=== PATIENT | female | born 1955 | race Caucasian/White ===

== ENCOUNTER 2017-09-23 14:35 | Emergency (ER) | payer OTHER ==
[~2017-09-23] VITALS: Ht 180.3 cm; Wt 94.0 kg
[2017-09-23 14:37] VITALS: BP 154/94; PULSE 106; RESP 14; TEMP 98.4; O2SAT 100
--- NOTE | 2017-09-23 16:19 | PD ---
HPI Chief Complaint: Skin Problem Time Seen by Provider: 15:58 Travel History International Travel<30 days: No Contact w/Intl Traveler<30days: No Traveled to known affect area: No History of Present Illness HPI 62yo F with PMH of DM, COPD here with c/o darkening of her right big toe. Pt has been having back area on right big toe for 2 weeks and went to see her primary care physician 2 days ago. Pt said she was told to come to the ED if symptoms worsen. Pt said the darkness is spreading and the area below the nail seemed darker so decided to come in. Denies any fever, pain, chest pain, sob, n /v, abdominal pain, focal weakness or numbness. PFSH Social History Tobacco Use: No Allergies-Medications (Allergen,Severity, Reaction): Coded Allergies: No Known Allergies (Unverified , 09/23/17) Review of Systems Except as stated in HPI: all other systems reviewed are Neg Physical Exam Narrative GEN: 62yo F not in distress. Head: Normocephalic, atraumatic. CV: S1, S2. Lungs: CTA B/L, equal breath sounds. Abd: soft, NT/ND. No rebound tenderness or guarding. Ext: Right foot: +Black discoloration and callous medial aspect of right big toe. Cold to touch. DP 2+. Sensation intact. Pt has decreased sensation in right big toe that is chronic. Data Data Last Documented VS Vital Signs Date Time Temp Pulse Resp B/P (MAP) Pulse Ox O2 Delivery O2 Flow Rate FiO2 09/23/17 17:50 09/23/17 15:23 16 09/23/17 14:37 98.4 106 100 Room Air Orders Orders Foot, Limited (2vws) (09/23/17 ) Complete Blood Count With Diff (09/23/17 16:06) Basic Metabolic Panel (Bmp) (09/23/17 16:06) Ed Discharge Order (09/23/17 17:43) Labs Laboratory Tests Test 09/23/17 16:20 White Blood Count 11.2 TH/MM3 Red Blood Count 4.17 MIL/MM3 Hemoglobin 12.1 GM/DL Hematocrit 35.6 % Mean Corpuscular Volume 85.4 FL Mean Corpuscular Hemoglobin 29.1 PG Mean Corpuscular Hemoglobin Concent 34.1 % Red Cell Distribution Width 15.5 % Platelet Count 375 TH/MM3 Mean Platelet Volume 7.9 FL Neutrophils (%) (Auto) 52.3 % Lymphocytes (%) (Auto) 36.7 % Monocytes (%) (Auto) 6.3 % Eosinophils (%) (Auto) 3.9 % Basophils (%) (Auto) 0.8 % Neutrophils # (Auto) 5.8 TH/MM3 Lymphocytes # (Auto) 4.1 TH/MM3 Monocytes # (Auto) 0.7 TH/MM3 Eosinophils # (Auto) 0.4 TH/MM3 Basophils # (Auto) 0.1 TH/MM3 CBC Comment DIFF FINAL Differential Comment Blood Urea Nitrogen 9 MG/DL Creatinine 1.16 MG/DL Random Glucose 121 MG/DL Calcium Level 9.0 MG/DL Sodium Level 135 MEQ/L Potassium Level 3.6 MEQ/L Chloride Level 100 MEQ/L Carbon Dioxide Level 27.2 MEQ/L Anion Gap 8 MEQ/L Estimat Glomerular Filtration Rate 47 ML/MIN MDM Medical Decision Making Medical Screen Exam Complete: Yes Emergency Medical Condition: Yes Differential Diagnosis Dry gangrene vs. diabetic foot Narrative Course 62yo F with 2 weeks of dark discoloration in right big toe. Has podiatry appointment on Monday but decide to come because it looks darker. There is no discharge, no foul smell, no erythema, edema. Pt has no pain. It is cool to touch but pt has good DP pulses. Labs reviewed, WBC 11.2. BMP unremarkable. Xray right foot showed no acute fracture. Mild degenerative change of first metatarsal phalangeal joint. Briefly discussed with Dr. Devlin from podiatry and he recommends follow up with her electronic imager if no elevated WBC or signs of infection. Pt has electronic imager but will still give our electronic imager's information. Diagnosis Primary Impression: Dry gangrene Referrals: Daniel Devlin DPM as needed Patient Instructions: General Instructions Departure Forms: Tests/Procedures Additional Instructions: Please follow up with your electronic imager as well as primary care for possible referral to vascular surgeon. Return to the ED if symptoms worsen. Med/Other Pt SpecificInfo: No Change to Meds Disposition: 01 DISCHARGE HOME Condition: Stable Berenice Estrada Sep 23, 2017 16:19
--- NOTE | 2017-09-23 16:34 | RADRPT ---
EXAM DATE/TIME: 09/23/2017 16:13 [facility] COMPARISON: No previous studies available for comparison. INDICATIONS : Right foot pain, no injury. MEDICAL HISTORY : None. SURGICAL HISTORY : Bunionectomy, right foot ENCOUNTER: Initial ACUITY: 4 - 6 days PAIN SCORE: 6/10 LOCATION: Right foot, distal first digit FINDINGS: Two view examination of the right foot demonstrates no soft tissue swelling, dislocation, or fracture . The calcaneus is intact. Bony mineralization is normal. There is evidence of previous surgery to the distal second metatarsal. There is mild degenerative changes at the first metatarsal-phalangeal j oint. CONCLUSION: 1. No acute fracture or joint dislocation. 2. Mild degenerative changes of the first metatarsal phalangeal joint. Gagan Sharif MD on September 23, 2017 at 16:32 Board Certified Radiologist. This report was verified electronically.
[2017-09-23 16:50] LABS: AUTOMATED NEUTROPHIL # 5.8 TH/MM3 (1.8-7.7); BASOPHIL # 0.1 TH/MM3 (0-0.2); BASOPHIL % 0.8 % (0.0-2.0); EOSINOPHIL # 0.4 TH/MM3 (0-0.4); EOSINOPHIL % 3.9 % (0.0-4.0); HEMATOCRIT 35.6 % (35.0-46.0); HEMOGLOBIN 12.1 GM/DL (11.6-15.3); LYMPH % 36.7 % (9.0-44.0); LYMPHOCYTE # 4.1 TH/MM3 (1.0-4.8); MEAN CELL VOLUME 85.4 FL (80.0-100.0); MEAN CORPUSCULAR HEMOGLOBIN 29.1 PG (27.0-34.0); MEAN CORPUSCULAR HGB CONC 34.1 % (32.0-36.0); MEAN PLATELET VOLUME 7.9 FL (7.0-11.0); MONO % 6.3 % (0.0-8.0); MONOCYTE # 0.7 TH/MM3 (0-0.9); NEUT % 52.3 % (16.0-70.0); PLATELET COUNT 375 TH/MM3 (150-450); RED BLOOD COUNT 4.17 MIL/MM3 (4.00-5.30); RED CELL DISTRIBUTION WIDTH 15.5 % (11.6-17.2); WHITE BLOOD COUNT 11.2 TH/MM3 (4.0-11.0)
[2017-09-23 17:10] LABS: BICARBONATE 27.2 MEQ/L (21.0-32.0); CREATININE 1.16 MG/DL (0.50-1.00)
== END 2017-09-23 17:59 | disposition home or self-care (01) ==
LOC: NEPD 14:35
DX: E11.52 Type 2 diabetes mellitus with diabetic peripheral angiopathy with gangrene (principal); I96 Gangrene, not elsewhere classified; J44.9 Chronic obstructive pulmonary disease, unspecified
CPT/HCPCS: 73620; 80048; 85025; 99284

== ENCOUNTER 2018-01-13 17:42 | Observation (INO) | payer OTHER ==
[~2018-01-13] VITALS: Ht 175.3 cm; Wt 99.0 kg
[2018-01-13] VITALS (7 sets, daily range): BP systolic 165–210; BP diastolic 76–147; PULSE 112–120; RESP 20–30; TEMP 99; O2SAT 94–99
[2018-01-13] MEDS ORDERED: ALBU6.7H INH (17:58)
--- NOTE | 2018-01-13 18:13 | PD ---
HPI Chief Complaint: Respiratory Distress Time Seen by Provider: 17:52 Travel History International Travel<30 days: No Contact w/Intl Traveler<30days: No Traveled to known affect area: No History of Present Illness HPI The patient is a 62-year-old female who presents to the emergency department for shortness of breath. The patient states she developed chest pain and shortness of breath earlier today while watching TV. The chest pain is described as tightness, across the anterior aspect of the chest, and associated with shortness of breath. The patient also notes a productive cough producing yellow to green sputum. The patient does have a history of asthma and COPD with a history of tobacco use. The patient denies any previous history of pulmonary embolism, DVT, recent hospitalizations, recent travel, or recent surgery. The patient moved to the local area 6 months ago from [place]. The patient denies any previous intubations from her asthma or COPD. The patient does complain of mild nausea but denies any vomiting, diarrhea, or abdominal pain. She denies any significant edema of the lower extremities. PFSH Past Medical History Asthma: Yes COPD: Yes Diabetes: Yes Patient Takes Glucophage: Yes (Yesterday) Diminished Hearing: No GERD: Yes Hypertension: Yes Influenza Vaccination: Yes Past Surgical History Cholecystectomy: Yes Gynecologic Surgery: Yes (hysterectomy) Hysterectomy: Yes (TOTAL) Social History Alcohol Use: No Tobacco Use: No Substance Use: No Allergies-Medications (Allergen,Severity, Reaction): Coded Allergies: No Known Allergies (Unverified , 01/13/18) Reported Meds & Prescriptions Reported Meds & Active Scripts Active Reported Trazodone (Trazodone HCl) 50 Mg Tab 25 Mg PO HS Losartan (Losartan Potassium) 100 Mg Tab 100 Mg PO DAILY Vitamin B-12 (Cyanocobalamin) 1,000 Mcg Tab 1,000 Mcg PO DAILY Dicyclomine (Dicyclomine HCl) 20 Mg Tab 20 Mg PO TID Metformin (Metformin HCl) 1,000 Mg Tab 1,000 Mg PO BIDPC Montelukast (Montelukast Sodium) 10 Mg Tab 10 Mg PO HS Pantoprazole (Pantoprazole Sodium) 40 Mg Tab 40 Mg PO DAILY Ranitidine (Ranitidine HCl) 300 Mg Cap 300 Mg PO DAILY Amlodipine (Amlodipine Besylate) 10 Mg Tab 10 Mg PO DAILY Benzonatate 100 Mg Cap 100 Mg PO TID PRN Pravastatin 20 Mg Tab 20 Mg PO DAILY Aspirin 81 Mg Chew 81 Mg CHEW DAILY Duloxetine DR (Duloxetine HCl) 30 Mg Capdr 30 Mg PO DAILY Spiriva Respimat Inh (Tiotropium Inh) 2.5 Mcg/Act Aero 2 Puff INH DAILY 2.5 mcg = 1 inhalation Dulera 120 Act Inh (Mometasone-Formoterol 120 Act Inh) 200-5 Mcg/Act Inh 2 Puff INH BID Flexeril (Cyclobenzaprine HCl) 10 Mg Tab 10 Mg PO TID Review of Systems Except as stated in HPI: all other systems reviewed are Neg General / Constitutional: No: Fever HENT: No: Lightheadedness Cardiovascular: Positive: Chest Pain or Discomfort Respiratory: Positive: Cough, Shortness of Breath, Wheezing Gastrointestinal: No: Nausea, Vomiting, Abdominal Pain Musculoskeletal: No: Edema Neurologic: No: Dizziness Psychiatric: Positive: Anxiety Physical Exam Narrative GENERAL: Awake, alert, pleasant 62-year-old female who appears her stated age and is in mild respiratory distress SKIN: Focused skin assessment warm/dry. HEAD: Atraumatic. Normocephalic. EYES: Pupils equal and round. No scleral icterus. No injection or drainage. ENT: No nasal bleeding or discharge. Mucous membranes pink and moist. NECK: Trachea midline. No JVD. CARDIOVASCULAR: Regular, tachycardic with a heart rate in the 120s. RESPIRATORY: No accessory muscle use. Clear to auscultation. Breath sounds equal bilaterally. No significant wheezing noted. GASTROINTESTINAL: Abdomen soft, non-tender, nondistended. No rebound tenderness. No guarding or rigidity. MUSCULOSKELETAL: No obvious deformities. No clubbing. No cyanosis. No edema. NEUROLOGICAL: Awake and alert. No obvious cranial nerve deficits. Motor grossly within normal limits. Normal speech. PSYCHIATRIC: Appropriate mood and affect; insight and judgment normal. Data Data Last Documented VS Vital Signs Date Time Temp Pulse Resp B/P (MAP) Pulse Ox O2 Delivery O2 Flow Rate FiO2 01/14/18 00:00 118 21 148/69 (95) 95 Room Air 01/13/18 17:44 99.0 Orders Orders Complete Blood Count With Diff (01/13/18 18:07) Comprehensive Metabolic Panel (01/13/18 18:07) B-Type Natriuretic Peptide (01/13/18 18:07) Act Partial Throm Time (Ptt) (01/13/18 18:07) Prothrombin Time / Inr (Pt) (01/13/18 18:07) Magnesium (Mg) (01/13/18 18:07) Ckmb (Isoenzyme) Profile (01/13/18 18:07) Troponin I (01/13/18 18:07) Iv Access Insert/Monitor (01/13/18 18:07) Ecg Monitoring (01/13/18 18:07) Oximetry (01/13/18 18:07) Oxygen Administration (01/13/18 18:07) Chest, Single Ap (01/13/18 18:07) Sodium Chloride 0.9% Flush (Ns Flush) (01/13/18 18:15) Methylprednisolone So Succ Inj (Solumedr (01/13/18 18:15) Albuterol-Ipratropium Neb (Duoneb Neb) (01/13/18 18:15) Lorazepam Inj (Ativan Inj) (01/13/18 18:15) Ct Pulmonary Angiogram (01/13/18 ) Iohexol 350 Inj (Omnipaque 350 Inj) (01/13/18 19:40) Sodium Chlorid 0.9% 500 Ml Inj (Ns 500 M (01/13/18 21:15) Losartan (Cozaar) (01/13/18 21:15) Amlodipine (Norvasc) (01/13/18 21:15) Electrocardiogram (01/13/18 16:56) Trazodone (Desyrel) (01/13/18 23:00) Acetaminophen (Tylenol) (01/13/18 23:00) Cyclobenzaprine (Flexeril) (01/13/18 23:00) Metoprolol Tartrate Inj (Lopressor Inj) (01/14/18 00:09) Activity Bed Rest With Brp (01/14/18 00:10) Vital Signs (Adult) Q4H (01/14/18 00:10) Cardiac Rhythm .As Directed (01/14/18 00:10) Notify Dr: Other .PRN (01/14/18 00:10) Notify Dr. Parameters (01/14/18 00:10) Resp Oxygen Nasal Cannula (01/14/18 ) Ckmb (Isoenzyme) Profile (01/14/18 00:10) Ckmb (Isoenzyme) Profile (01/14/18 03:10) Troponin I (01/14/18 00:10) Troponin I (01/14/18 03:10) Electrocardiogram (01/14/18 00:10) Electrocardiogram (01/14/18 03:10) ^ Obtain (01/14/18 00:10) Sodium Chloride 0.9% Flush (Ns Flush) (01/14/18 00:15) Sodium Chloride 0.9% Flush (Ns Flush) (01/14/18 09:00) Repeater Operator / Telemetry STELLA.Q8H (01/14/18 00:10) Admit Order (Ed Use Only) (01/14/18 ) Labs Laboratory Tests Test 01/13/18 18:15 White Blood Count 11.0 TH/MM3 Red Blood Count 4.00 MIL/MM3 Hemoglobin 12.5 GM/DL Hematocrit 36.8 % Mean Corpuscular Volume 91.9 FL Mean Corpuscular Hemoglobin 31.2 PG Mean Corpuscular Hemoglobin Concent 33.9 % Red Cell Distribution Width 15.3 % Platelet Count 453 TH/MM3 Mean Platelet Volume 7.3 FL Neutrophils (%) (Auto) 44.6 % Lymphocytes (%) (Auto) 41.1 % Monocytes (%) (Auto) 7.7 % Eosinophils (%) (Auto) 5.2 % Basophils (%) (Auto) 1.4 % Neutrophils # (Auto) 4.9 TH/MM3 Lymphocytes # (Auto) 4.5 TH/MM3 Monocytes # (Auto) 0.8 TH/MM3 Eosinophils # (Auto) 0.6 TH/MM3 Basophils # (Auto) 0.2 TH/MM3 CBC Comment DIFF FINAL Differential Comment Prothrombin Time 10.7 SEC Prothromb Time International Ratio 1.1 RATIO Activated Partial Thromboplast Time 26.7 SEC Blood Urea Nitrogen 11 MG/DL Creatinine 1.03 MG/DL Random Glucose 144 MG/DL Total Protein 8.7 GM/DL Albumin 4.1 GM/DL Calcium Level 8.8 MG/DL Magnesium Level 1.7 MG/DL Alkaline Phosphatase 96 U/L Aspartate Amino Transf (AST/SGOT) 41 U/L Alanine Aminotransferase (ALT/SGPT) 30 U/L Total Bilirubin 0.5 MG/DL Sodium Level 132 MEQ/L Potassium Level 3.4 MEQ/L Chloride Level 96 MEQ/L Carbon Dioxide Level 25.4 MEQ/L Anion Gap 11 MEQ/L Estimat Glomerular Filtration Rate 54 ML/MIN Total Creatine Kinase 73 U/L Troponin I LESS THAN 0.02 NG/ML B-Type Natriuretic Peptide 3 PG/ML MDM Medical Decision Making Medical Screen Exam Complete: Yes Emergency Medical Condition: Yes Medical Record Reviewed: Yes Interpretation(s) EKG reveals sinus tachycardia with a heart rate of 127. No ischemic changes noted. Differential Diagnosis Differential diagnosis includes COPD exacerbation, asthma exacerbation, pulmonary embolism, acute coronary syndrome, pleural effusion, pulmonary edema, congestive heart failure, cardiomyopathy. Narrative Course IV was established, labs are drawn and sent, and the patient was placed on cardiac telemetry monitoring and continuous pulse oximetry monitoring. EKG was ordered and interpreted. Chest x-ray was obtained. CT pulmonary angiogram was ordered as patient is tachycardic with shortness of breath, chest tightness, and minimal to no wheezing. The patient was signed out to the oncoming physician at 7 PM with laboratory evaluation and CT pulmonary angiogram pending. The patient does have abnormal vitals with increased work of breathing , will be admitted. Condition: Stable Haider Baig MD Jan 13, 2018 18:13
[2018-01-13] MEDS ORDERED: LORazepam 2 MG/ML VIAL IV PUSH ONE (18:15)
[2018-01-13] MEDS ORDERED: SODIUM CHLORIDE 0.9% FLUSH 10 ML FLUSH IVF PRN (18:15)
[2018-01-13] MEDS ORDERED: methylPREDNISolone SOD SUCC 125 MG/2 ML VIAL IV PUSH ONE (18:15)
[2018-01-13] MEDS ORDERED: RESP: ALBUTEROL 2.5 MG/IPRATROPIUM 0.5 MG NEB (SCH) INH (18:15)
[2018-01-13 18:29] LABS: AUTOMATED NEUTROPHIL # 4.9 TH/MM3 (1.8-7.7); BASOPHIL # 0.2 TH/MM3 (0-0.2); BASOPHIL % 1.4 % (0.0-2.0); EOSINOPHIL # 0.6 TH/MM3 (0-0.4); EOSINOPHIL % 5.2 % (0.0-4.0); HEMATOCRIT 36.8 % (35.0-46.0); HEMOGLOBIN 12.5 GM/DL (11.6-15.3); LYMPH % 41.1 % (9.0-44.0); LYMPHOCYTE # 4.5 TH/MM3 (1.0-4.8); MEAN CELL VOLUME 91.9 FL (80.0-100.0); MEAN CORPUSCULAR HEMOGLOBIN 31.2 PG (27.0-34.0); MEAN CORPUSCULAR HGB CONC 33.9 % (32.0-36.0); MEAN PLATELET VOLUME 7.3 FL (7.0-11.0); MONO % 7.7 % (0.0-8.0); MONOCYTE # 0.8 TH/MM3 (0-0.9); NEUT % 44.6 % (16.0-70.0); PLATELET COUNT 453 TH/MM3 (150-450); RED CELL DISTRIBUTION WIDTH 15.3 % (11.6-17.2)
[2018-01-13 18:40] LABS: INTERNATIONAL NORMALIZED RATIO 1.1 RATIO; PROTHROMBIN TIME - PATIENT 10.7 SEC (9.8-11.6)
[2018-01-13 18:46] LABS: ALBUMIN 4.1 GM/DL (3.4-5.0); AST (GOT) 41 U/L (15-37); BICARBONATE 25.4 MEQ/L (21.0-32.0); BLOOD UREA NITROGEN 11 MG/DL (7-18); CALCIUM 8.8 MG/DL (8.5-10.1); CHLORIDE 96 MEQ/L (98-107); CREATININE 1.03 MG/DL (0.50-1.00); GLOMERULAR FILTRATION RATE 54 ML/MIN (>89); GLUCOSE,RANDOM 144 MG/DL (74-106); MAGNESIUM 1.7 MG/DL (1.5-2.5); SODIUM (NA) 132 MEQ/L (136-145)
[2018-01-13 18:47] LABS: ALT (GPT) 30 U/L (10-53)
[2018-01-13 18:50] LABS: ALKALINE PHOSPHATASE 96 U/L (45-117); TOTAL BILIRUBIN ADULT 0.5 MG/DL (0.2-1.0); TOTAL PROTEIN 8.7 GM/DL (6.4-8.2); TROPONIN I LESS THAN 0.02 NG/ML (0.02-0.05)
[2018-01-13] MEDS ORDERED: PANT40TA3 PO (18:57)
[2018-01-13] MEDS ORDERED: AMLO10TA2 PO (18:57)
[2018-01-13] MEDS ORDERED: PRAV20TA2 PO (18:57)
[2018-01-13] MEDS ORDERED: RANI300C PO (18:57)
[2018-01-13] MEDS ORDERED: METF1000 PO (18:57)
[2018-01-13] MEDS ORDERED: DULE200A INH (18:57)
[2018-01-13] MEDS ORDERED: DULO1CAP2 PO (18:57)
[2018-01-13] MEDS ORDERED: BENZ1CAP54 PO (18:57)
[2018-01-13] MEDS ORDERED: TIOT12.9 INH (18:57)
[2018-01-13] MEDS ORDERED: TRAZ50TA12 PO (18:57)
[2018-01-13] MEDS ORDERED: DICY20TA10 PO (18:57)
[2018-01-13] MEDS ORDERED: MONT10TA4 PO (18:57)
[2018-01-13] MEDS ORDERED: LOSA100T PO (18:57)
[2018-01-13] MEDS ORDERED: VITA10002 PO (18:57)
[2018-01-13] MEDS ORDERED: CYCL10TA PO (18:57)
[2018-01-13] MEDS ORDERED: ASPI-516 CHEW (18:57)
--- NOTE | 2018-01-13 19:09 | RADRPT ---
EXAM DATE: 01/13/2018 6:39 PM EDT AGE/SEX: 62 years / Female INDICATIONS: Short of breath. CLINICAL DATA: This is the patient's initial encounter. Patient reports that signs and symptoms have been present for 1 day and indicates a pain score of 0/10. MEDICAL/SURGICAL HISTORY: None. None. COMPARISON: No prior exams available for comparison. FINDINGS: A single AP view of the chest demonstrates the lungs to be symmetrically aerated without evidence of mass, infiltrate or effusion. Mild basilar atelectasis. The cardiomediastinal contours are unremarkab le. Osseous structures are intact. CONCLUSION: Mild basilar atelectasis. Electronically signed by: Antonio Matta MD 01/13/2018 7:08 PM EDT
[2018-01-13] MEDS ORDERED: IOHEXOL 350 MG/ML 10 ML VIAL (for RAD DIAG) IVCONTRAST ONE (19:40)
--- NOTE | 2018-01-13 20:26 | RADRPT ---
EXAM DATE: 01/13/2018 7:58 PM EDT AGE/SEX: 62 years / Female INDICATIONS: Shortness of breath today. CLINICAL DATA: This is the patient's initial encounter. Patient reports that signs and symptoms have been present for 1 day and indicates a pain score of 0/10. MEDICAL/SURGICAL HISTORY: Diabetes. Hypertension. Gastroesophageal reflux disease. Hysterectomy. Cholecystectomy. RADIATION DOSE: 10.47 CTDI (mGy) COMPARISON: No prior exams available for comparison. TECHNIQUE: Volumetric scanning was performed using a multi-row detector CT scanner during bolus infu owen of 70 ml Omnipaque 350 (iohexol) nonionic water-soluble contrast as a single exam dose. The candice a was post processed with a variety of visualization algorithms including full volume maximum intensi ty projection and sliding thin slab reformation. Using automated exposure control and adjustment of the mA and/or kV according to patient size, radiation dose was kept as low as reasonably achievable t o obtain optimal diagnostic quality images. FINDINGS: No filling defects in the pulmonary arteries to suggest pulmonary embolic disease. Dependent atelecta sis in the lungs. No pleural or pericardial effusion. Moderate coronary calcifications. CONCLUSION: 1. Negative for pulmonary embolus. Moderate coronary calcifications. No lung consolidation or effusi on. Electronically signed by: Antonio Matta MD 01/13/2018 8:25 PM EDT
[2018-01-13] MEDS ORDERED: LOSARTAN 50 MG TAB PO ONE (21:15)
[2018-01-13] MEDS ORDERED: SODIUM CHLORID 0.9% 500 ML INJ 500 ML IV ONE (21:15)
[2018-01-13] MEDS ORDERED: CYCLOBENZAPRINE HCL 10 MG TAB PO ONE (23:00)
[2018-01-13] MEDS ORDERED: ACETAMINOPHEN 325 MG TAB PO ONE (23:00)
[2018-01-13] MEDS ORDERED: traZODone HCL 50 MG TAB PO ONE (23:00)
[2018-01-14] VITALS (8 sets, daily range): BP systolic 141–156; BP diastolic 69–90; PULSE 103–121; RESP 16–21; TEMP 97.6–98.9; O2SAT 93–99
[2018-01-14] MEDS ORDERED: METOPROLOL TARTRATE 5 MG/5 ML VIAL IV PUSH STA (00:09)
[2018-01-14] MEDS ORDERED: SODIUM CHLORIDE 0.9% FLUSH 10 ML FLUSH IV FLUSH PRN (00:15)
[2018-01-14 01:56] LABS: TROPONIN I 0.02 NG/ML (0.02-0.05)
--- NOTE | 2018-01-14 02:59 | PD ---
Physical Exam Narrative Patient signed out to me by Dr. Baig. Please see his documentation for complete details. Briefly, patient is a 62-year-old female who comes in complaining of chest pain and shortness of breath. On arrival she was tachycardic, lungs were clear. She was given 2 DuoNeb's and a dose of Solu-Medrol with improvement of her breathing. However, she continues to be tachycardic and had occasional chest pains. Data Data Last Documented VS Vital Signs Date Time Temp Pulse Resp B/P (MAP) Pulse Ox O2 Delivery O2 Flow Rate FiO2 01/14/18 00:00 118 21 148/69 (95) 95 Room Air 01/13/18 17:44 99.0 Orders Orders Complete Blood Count With Diff (01/13/18 18:07) Comprehensive Metabolic Panel (01/13/18 18:07) B-Type Natriuretic Peptide (01/13/18 18:07) Act Partial Throm Time (Ptt) (01/13/18 18:07) Prothrombin Time / Inr (Pt) (01/13/18 18:07) Magnesium (Mg) (01/13/18 18:07) Ckmb (Isoenzyme) Profile (01/13/18 18:07) Troponin I (01/13/18 18:07) Iv Access Insert/Monitor (01/13/18 18:07) Ecg Monitoring (01/13/18 18:07) Oximetry (01/13/18 18:07) Oxygen Administration (01/13/18 18:07) Chest, Single Ap (01/13/18 18:07) Sodium Chloride 0.9% Flush (Ns Flush) (01/13/18 18:15) Methylprednisolone So Succ Inj (Solumedr (01/13/18 18:15) Albuterol-Ipratropium Neb (Duoneb Neb) (01/13/18 18:15) Lorazepam Inj (Ativan Inj) (01/13/18 18:15) Ct Pulmonary Angiogram (01/13/18 ) Iohexol 350 Inj (Omnipaque 350 Inj) (01/13/18 19:40) Sodium Chlorid 0.9% 500 Ml Inj (Ns 500 M (01/13/18 21:15) Losartan (Cozaar) (01/13/18 21:15) Amlodipine (Norvasc) (01/13/18 21:15) Electrocardiogram (01/13/18 16:56) Trazodone (Desyrel) (01/13/18 23:00) Acetaminophen (Tylenol) (01/13/18 23:00) Cyclobenzaprine (Flexeril) (01/13/18 23:00) Metoprolol Tartrate Inj (Lopressor Inj) (01/14/18 00:09) Activity Bed Rest With Brp (01/14/18 00:10) Vital Signs (Adult) Q4H (01/14/18 00:10) Cardiac Rhythm .As Directed (01/14/18 00:10) Notify Dr: Other .PRN (01/14/18 00:10) Notify DrJoleen Parameters (01/14/18 00:10) Resp Oxygen Nasal Cannula (01/14/18 ) Ckmb (Isoenzyme) Profile (01/14/18 00:10) Ckmb (Isoenzyme) Profile (01/14/18 03:10) Troponin I (01/14/18 00:10) Troponin I (01/14/18 03:10) Electrocardiogram (01/14/18 00:10) Electrocardiogram (01/14/18 03:10) ^ Obtain (01/14/18 00:10) Sodium Chloride 0.9% Flush (Ns Flush) (01/14/18 00:15) Sodium Chloride 0.9% Flush (Ns Flush) (01/14/18 09:00) Heavy Duty Diesel Mechanic / Telemetry STELLA.Q8H (01/14/18 00:10) Admit Order (Ed Use Only) (01/14/18 ) Labs Laboratory Tests Test 01/13/18 18:15 White Blood Count 11.0 TH/MM3 Red Blood Count 4.00 MIL/MM3 Hemoglobin 12.5 GM/DL Hematocrit 36.8 % Mean Corpuscular Volume 91.9 FL Mean Corpuscular Hemoglobin 31.2 PG Mean Corpuscular Hemoglobin Concent 33.9 % Red Cell Distribution Width 15.3 % Platelet Count 453 TH/MM3 Mean Platelet Volume 7.3 FL Neutrophils (%) (Auto) 44.6 % Lymphocytes (%) (Auto) 41.1 % Monocytes (%) (Auto) 7.7 % Eosinophils (%) (Auto) 5.2 % Basophils (%) (Auto) 1.4 % Neutrophils # (Auto) 4.9 TH/MM3 Lymphocytes # (Auto) 4.5 TH/MM3 Monocytes # (Auto) 0.8 TH/MM3 Eosinophils # (Auto) 0.6 TH/MM3 Basophils # (Auto) 0.2 TH/MM3 CBC Comment DIFF FINAL Differential Comment Prothrombin Time 10.7 SEC Prothromb Time International Ratio 1.1 RATIO Activated Partial Thromboplast Time 26.7 SEC Blood Urea Nitrogen 11 MG/DL Creatinine 1.03 MG/DL Random Glucose 144 MG/DL Total Protein 8.7 GM/DL Albumin 4.1 GM/DL Calcium Level 8.8 MG/DL Magnesium Level 1.7 MG/DL Alkaline Phosphatase 96 U/L Aspartate Amino Transf (AST/SGOT) 41 U/L Alanine Aminotransferase (ALT/SGPT) 30 U/L Total Bilirubin 0.5 MG/DL Sodium Level 132 MEQ/L Potassium Level 3.4 MEQ/L Chloride Level 96 MEQ/L Carbon Dioxide Level 25.4 MEQ/L Anion Gap 11 MEQ/L Estimat Glomerular Filtration Rate 54 ML/MIN Total Creatine Kinase 73 U/L Troponin I LESS THAN 0.02 NG/ML B-Type Natriuretic Peptide 3 PG/ML MDM Supervised Visit with DAVION: No Narrative Course Labs showed no acute abnormalities. CT of the chest was negative for PE. Patient was given her home medications, which improved her high blood pressure. However she remained tachycardic, so she was given a small dose of metoprolol which improved her heart rate. Should be placed in the chest pain center for further management of her chest pain. Diagnosis Primary Impression: Chest pain Qualified Codes: R07.9 - Chest pain, unspecified Additional Impression: Tachycardia Admitting Information Admitting Physician Requests: Observation Condition: Stable Sophy Fleming MD Jan 14, 2018 02:59
[2018-01-14 04:02] LABS: TROPONIN I LESS THAN 0.02 NG/ML (0.02-0.05)
[2018-01-14] MEDS ORDERED: ACETAMINOPHEN 500 MG CPLT PO PRN (07:30)
[2018-01-14] MEDS ORDERED: RESP: ALBUTEROL 2.5 MG/3 ML NEB (PRN) NEB (07:30)
[2018-01-14] MEDS ORDERED: NITROGLYCERIN 0.4 MG SL 25 TABS/BTL SL PRN (07:30)
--- NOTE | 2018-01-14 08:32 | HHI.HP ---
HPI Primary Care Physician [facility] Chief Complaint Chest tightness History of Present Illness 62-year-old female with history of type 2 diabetes, hypertension, hyperlipidemia , COPD, and former smoker presents emergency room for further evaluation of chest tightness. Onset yesterday afternoon. Location substernal. Characterized as tightness, "not like my asthma or COPD." No wheezing or recent upper respiratory infection. No radiation. Moderate in severity. Duration at least 6 hours. Associated symptoms included dyspnea, hurt to deep breath, nausea, and diaphoresis. No vomiting. No known precipitating factors. Relieving factors included respiratory treatment provided in ER, resolving symptoms quickly. Denies similar pain in the past. No increase use of PRN nebulizers treatments required recently. Increase seasonal allergy symptoms. Review of Systems General: No fatigue, weakness, fever, chills, recent illness, or change in appetite. Has been in her general state of health. HEENT: No RILEY, no vision changes, no nasal congestion or drainage, no dysphasia CV: As stated above. No current chest discomfort or pressure. RESP: No SOB, cough, or wheeze. Stable, unchanged COPD, without increase in symptoms. GI: Chronic diarrhea, follows with her PCP and GI closely. No nausea, vomiting, pain, distention, melena, or blood in the stool. : No dysuria, urgency, frequency EXT: No lower leg edema, no paraesthesias MS: No discomfort or change in ROM NEURO: No dizziness, difficulty with balance, LOC, motor/sensory deficits PSYCH: No anxiety, depression, or suicidal ideation SKIN: No rashes, no concerning lesions Past Family Social History Allergies: Coded Allergies: No Known Allergies (Unverified , 01/13/18) Past Medical History Type 2 diabetes mellitus, hypertension, hyperlipidemia, COPD, asthma, former smoker, chronic back pain Past Surgical History Hysterectomy, cholecystectomy, bladder suspension Reported Medications Reported Meds & Active Scripts Active Reported Trazodone (Trazodone HCl) 50 Mg Tab 25 Mg PO HS Losartan (Losartan Potassium) 100 Mg Tab 100 Mg PO DAILY Vitamin B-12 (Cyanocobalamin) 1,000 Mcg Tab 1,000 Mcg PO DAILY Dicyclomine (Dicyclomine HCl) 20 Mg Tab 20 Mg PO TID Metformin (Metformin HCl) 1,000 Mg Tab 1,000 Mg PO BIDPC Montelukast (Montelukast Sodium) 10 Mg Tab 10 Mg PO HS Pantoprazole (Pantoprazole Sodium) 40 Mg Tab 40 Mg PO DAILY Ranitidine (Ranitidine HCl) 300 Mg Cap 300 Mg PO DAILY Amlodipine (Amlodipine Besylate) 10 Mg Tab 10 Mg PO DAILY Benzonatate 100 Mg Cap 100 Mg PO TID PRN Pravastatin 20 Mg Tab 20 Mg PO DAILY Aspirin 81 Mg Chew 81 Mg CHEW DAILY Duloxetine DR (Duloxetine HCl) 30 Mg Capdr 30 Mg PO DAILY Spiriva Respimat Inh (Tiotropium Inh) 2.5 Mcg/Act Aero 2 Puff INH DAILY 2.5 mcg = 1 inhalation Dulera 120 Act Inh (Mometasone-Formoterol 120 Act Inh) 200-5 Mcg/Act Inh 2 Puff INH BID Flexeril (Cyclobenzaprine HCl) 10 Mg Tab 10 Mg PO TID Active Ordered Medications Current Medications Medications (Trade) Dose Ordered Sig/Ese Route Start Time Stop Time Status Last Admin (NS Flush) 2 ml UNSCH PRN IVF 01/13/18 18:15 (NS Flush) 2 ml UNSCH PRN IV FLUSH 01/14/18 00:15 (NS Flush) 2 ml BID IV FLUSH 01/14/18 09:00 01/14/18 07:59 (Tylenol) 500 mg Q4H PRN PO 01/14/18 07:30 (Nitrostat Sl) 0.4 mg Q5M PRN SL 01/14/18 07:30 (Aspirin) 325 mg DAILY PO 01/14/18 09:00 01/14/18 07:59 (Albuterol Neb) 2.5 mg Q2HR NEB PRN NEB 01/14/18 07:30 Family History Sister [id number] in early 50s. Social History No known coronary artery disease. Known Type 2 diabetes, hypertension, and hyperlipidemia. Former smoker [id number] history. Denies any alcohol or illegal drug use. Endorses a sedentary lifestyle. Served [employer] 4 years. Past cardiac testing None Physical Exam Vital Signs Vital Signs Date Time Temp Pulse Resp B/P (MAP) Pulse Ox O2 Delivery O2 Flow Rate FiO2 01/14/18 07:32 95 21 01/14/18 06:13 21 01/14/18 04:44 98.7 111 18 141/81 (101) 93 6/17/18 03:13 105 01/14/18 02:54 01/14/18 02:36 98.9 105 16 147/80 (102) 95 01/14/18 00:49 121 20 156/74 (101) 95 Room Air 01/14/18 00:00 118 21 148/69 (95) 95 Room Air 01/13/18 23:00 118 20 166/76 (106) 95 Room Air 01/13/18 22:00 114 22 165/92 (116) 94 Room Air 01/13/18 21:00 118 28 210/147 (168) 96 Room Air 01/13/18 20:00 112 30 190/84 (119) 95 Room Air 01/13/18 18:15 99 Room Air 01/13/18 18:15 100 Room Air 01/13/18 17:59 100 Room Air 01/13/18 17:59 120 28 207/93 (131) 99 Room Air 01/13/18 17:44 99.0 119 30 192/106 (134) 97 Physical Exam GENERAL: Alert WN, WD, NAD, pleasant, moderately obese, -Macedonian female HEAD: NC, AT EYES: Sclera clear, conjunctiva without injection, pupils equal and round ENT: Mucous membranes pink and moist, no nasal discharge or bleeding, poor dentition CV: RRR, without murmur, rub, gallop, no JVD, S1-S2 no S3-S4. Chest wall pain reproduced with palpation. RESP: Clear lungs throughout bilateral, no crackles, wheeze, rhonchi, symmetrical chest rise, nonlabored, able to speak in full sentences ABD: Soft, NT, ND, no masses, positive bowel tones, obese, round EXT: Pulses +2x4, no dependent edema MS: Normal tone x4 extremities, no obvious deformities, full range of motion NEURO: CN II through CN XII grossly intact, motor strength 5/5 PSYCH: A+O x3, pleasant affect, appropriate speech, mood, insight and judgment SKIN: Normal turgor, normal texture, no lesions, no rashes, brisk cap refill Laboratory Laboratory Tests Test 01/13/18 18:15 01/14/18 01:15 01/14/18 03:10 White Blood Count 11.0 Red Blood Count 4.00 Hemoglobin 12.5 Hematocrit 36.8 Mean Corpuscular Volume 91.9 Mean Corpuscular Hemoglobin 31.2 Mean Corpuscular Hemoglobin Concent 33.9 Red Cell Distribution Width 15.3 Platelet Count 453 Mean Platelet Volume 7.3 Neutrophils (%) (Auto) 44.6 Lymphocytes (%) (Auto) 41.1 Monocytes (%) (Auto) 7.7 Eosinophils (%) (Auto) 5.2 Basophils (%) (Auto) 1.4 Neutrophils # (Auto) 4.9 Lymphocytes # (Auto) 4.5 Monocytes # (Auto) 0.8 Eosinophils # (Auto) 0.6 Basophils # (Auto) 0.2 CBC Comment DIFF FINAL Differential Comment Prothrombin Time 10.7 Prothromb Time International Ratio 1.1 Activated Partial Thromboplast Time 26.7 Blood Urea Nitrogen 11 Creatinine 1.03 Random Glucose 144 Total Protein 8.7 Albumin 4.1 Calcium Level 8.8 Magnesium Level 1.7 Alkaline Phosphatase 96 Aspartate Amino Transf (AST/SGOT) 41 Alanine Aminotransferase (ALT/SGPT) 30 Total Bilirubin 0.5 Sodium Level 132 Potassium Level 3.4 Chloride Level 96 Carbon Dioxide Level 25.4 Anion Gap 11 Estimat Glomerular Filtration Rate 54 Total Creatine Kinase 73 60 70 Troponin I LESS THAN 0.02 0.02 LESS THAN 0.02 B-Type Natriuretic Peptide 3 Result Diagram: 01/13/18 1815 01/13/18 1815 Imaging Last 48 hours Impressions Chest X-Ray 01/13/18 1807 Signed Impressions: CONCLUSION: Mild basilar atelectasis. CT Angiography 01/13/18 0000 Signed Impressions: CONCLUSION: 1. Negative for pulmonary embolus. Moderate coronary calcifications. No lung c onsolidation or effusion. Course EKG NST, no st t segment changes Caprini VTE Risk Assessment Caprini VTE Risk Assessment: Mod/High Risk (score >= 2) Caprini Risk Assessment Model Point Value = 1 Point Value = 2 Point Value = 3 Point Value = 5 Age 41-60 Minor surgery BMI > 25 kg/m2 Swollen legs Varicose veins or History of unexplained or recurrent spontaneous Oral contraceptives or hormone replacement Sepsis (< 1 month) Serious lung disease, including pneumonia (< 1 month) Abnormal pulmonary function Acute myocardial infarction Congestive heart failure (< 1 month) History of inflammatory bowel disease Medical patient at bed rest Age 61-74 Arthroscopic surgery Major open surgery (> 45 min) Laparoscopic surgery (> 45 min) Malignancy Confined to bed (> 72 hours) Immobilizing plaster cast Central venous access Age >= 75 History of VTE Family history of VTE Factor V Leiden Prothrombin [id number] Lupus anticoagulant Anticardiolipin antibodies Elevated serum homocysteine Heparin-induced thrombocytopenia Other congenital or acquired thrombophilia Stroke (< 1 month) Elective arthroplasty Hip, pelvis, or leg fracture Acute spinal cord injury (< 1 month) Prophylaxis Regimen Total Risk Factor Score Risk Level Prophylaxis Regimen 0-1 Low Early ambulation 2 Moderate Order ONE of the following: *Sequential Compression Device (SCD) *Heparin 5000 units SQ BID 3-4 Higher Order ONE of the following medications: *Heparin 5000 units SQ TID *Enoxaparin/Lovenox 40 mg SQ daily (WT < 150 kg, CrCl > 30 mL/min) *Enoxaparin/Lovenox 30 mg SQ daily (WT < 150 kg, CrCl > 10-29 mL/min) *Enoxaparin/Lovenox 30 mg SQ BID (WT < 150 kg, CrCl > 30 mL/min) AND/OR *Sequential Compression Device (SCD) 5 or more Highest Order ONE of the following medications: *Heparin 5000 units SQ TID (Preferred with Epidurals) *Enoxaparin/Lovenox 40 mg SQ daily (WT < 150 kg, CrCl > 30 mL/min) *Enoxaparin/Lovenox 30 mg SQ daily (WT < 150 kg, CrCl > 10-29 mL/min) *Enoxaparin/Lovenox 30 mg SQ BID (WT < 150 kg, CrCl > 30 mL/min) AND *Sequential Compression Device (SCD) Assessment and Plan Assessment and Plan #1 Atypical chest pain-admitted chest pain center. ACS ruled out with 3 sets of EKGs, cardiac enzymes, and monitor on telemetry overnight. Will be seen evaluated by Dr. Arnoldo Santana. Discussed due to risk factors likely will proceed with chemical stress test later this afternoon, unable to walk on treadmill due to chronic back pain. Agreeable to plan of care. If testing unremarkable, plan would be to discharge home and follow up with her PCP. #2 History of hypertension-continue losartan and amlodipine, consider adding beta jr #3 History of hyperlipidemia-continue pravastatin #4 History of type II diabetes-hold oral anti-glycemic's while n.p.o., SSI low dose coverage #5 History of COPD-continue Spiriva, albuterol every 2 hours as needed nebulizers for dyspnea or wheezing. Heidy Smith [facility] Jan 14, 2018 08:32
[2018-01-14] MEDS ORDERED: SODIUM CHLORIDE 0.9% FLUSH 10 ML FLUSH IV FLUSH SCH (09:00)
[2018-01-14] MEDS ORDERED: ASPIRIN 325 MG TAB PO SCH (09:00)
[2018-01-14] MEDS ORDERED: NON-FORMULARY DRUG (Mometasone-Formoterol 120 Act Inh (Dulera 120 Act Inh) 2 PUFF) INH SCH (09:15)
[2018-01-14] MEDS ORDERED: GLUCAGON 1 MG/ML VIAL OTHER PRN (09:30)
[2018-01-14] MEDS ORDERED: DEXTROSE 50% IN WATER 50 ML VIAL(D50) IV PUSH PRN (09:30)
[2018-01-14] MEDS ORDERED: PANTOPRAZOLE SOD 40 MG DELAYED RELEASE TAB PO SCH (10:00)
[2018-01-14] MEDS ORDERED: LOSARTAN 50 MG TAB PO SCH (10:00)
[2018-01-14] MEDS ORDERED: DULoxetine HCl DR 30 MG CAP PO SCH (10:00)
[2018-01-14] MEDS ORDERED: PRAVASTATIN SOD 20 MG TAB PO SCH (10:00)
[2018-01-14] MEDS ORDERED: ALPRAZolam 0.25 MG TAB PO ONE (11:15)
[2018-01-14] MEDS ORDERED: INSULIN ASPART SUPPLEMENTAL SCALE SQ SCH (12:00)
--- NOTE | 2018-01-14 13:29 | EKG ---
Date Performed: 01/13/2018 Time Performed: 16:56:13 PTAGE: 62 years EKG: SINUS TACHYCARDIA ABNORMAL RHYTHM ECG PREVIOUS TRACING 01/13/18 rate increase since prior tracing. Poor R-wave progression across the anterior precordium. DOCTOR: Arnoldo Santana Interpretating Date/Time 01/14/2018 13:27:40
--- NOTE | 2018-01-14 13:38 | PD.CARD.PN ---
Subjective Subjective Remarks Pleasant 62-year-old lady with a history as well recorded in the documentation. Records were reviewed she was discussed with the nurse practitioner she was seen and examined personally. The only additional history would provide is that she has had panic attacks in the past and some of her current symptoms may be related to recurrence of this disorder. Her underlying symptoms however certainly strongly suggest a respiratory etiology. However with risk factors of diabetes hypertension hyperlipidemia further evaluation with nuclear stress test was felt to be appropriate. Objective Medications Current Medications Medications (Trade) Dose Ordered Sig/Ese Route Start Time Stop Time Status Last Admin (NS Flush) 2 ml UNSCH PRN IVF 01/13/18 18:15 (NS Flush) 2 ml UNSCH PRN IV FLUSH 01/14/18 00:15 (NS Flush) 2 ml BID IV FLUSH 01/14/18 09:00 01/14/18 07:59 (Tylenol) 500 mg Q4H PRN PO 01/14/18 07:30 01/14/18 08:39 (Nitrostat Sl) 0.4 mg Q5M PRN SL 01/14/18 07:30 (Aspirin) 325 mg DAILY PO 01/14/18 09:00 01/14/18 07:59 (Albuterol Neb) 2.5 mg Q2HR NEB PRN NEB 01/14/18 07:30 (Norvasc) 10 mg DAILY PO 01/14/18 10:00 01/14/18 09:40 (Cymbalta Dr) 30 mg DAILY PO 01/14/18 10:00 01/14/18 09:40 (Cozaar) 100 mg DAILY PO 01/14/18 10:00 01/14/18 09:40 (Singulair) 10 mg HS PO 01/14/18 21:00 (Protonix) 40 mg DAILY PO 01/14/18 10:00 01/14/18 09:40 (Pravachol) 20 mg DAILY PO 01/14/18 10:00 01/14/18 09:40 (D50w (Vial) Inj) 50 ml UNSCH PRN IV PUSH 01/14/18 09:30 (Glucagon Inj) 1 mg UNSCH PRN OTHER 01/14/18 09:30 (NovoLOG SUPPLEMENTAL SCALE) 1 ACHS SLIDING SCALE SQ 01/14/18 12:00 (Symbicort 160-4.5 Mcg Inh) 2 puff BID INH 01/14/18 21:00 Vital Signs / I&O Vital Signs Date Time Temp Pulse Resp B/P (MAP) Pulse Ox O2 Delivery O2 Flow Rate FiO2 01/14/18 12:00 97.6 103 20 153/90 (111) 99 01/14/18 09:40 12 01/14/18 08:00 98.7 113 21 142/69 (93) 95 01/14/18 07:32 95 21 01/14/18 06:13 21 01/14/18 04:44 98.7 111 18 141/81 (101) 93 01/14/18 03:13 105 01/14/18 02:54 01/14/18 02:36 98.9 105 16 147/80 (102) 95 01/14/18 00:49 121 20 156/74 (101) 95 Room Air 01/14/18 00:00 118 21 148/69 (95) 95 Room Air 01/13/18 23:00 118 20 166/76 (106) 95 Room Air 01/13/18 22:00 114 22 165/92 (116) 94 Room Air 01/13/18 21:00 118 28 210/147 (168) 96 Room Air 01/13/18 20:00 112 30 190/84 (119) 95 Room Air 01/13/18 18:15 99 Room Air 01/13/18 18:15 100 Room Air 01/13/18 17:59 100 Room Air 01/13/18 17:59 120 28 207/93 (131) 99 Room Air 01/13/18 17:44 99.0 119 30 192/106 (134) 97 I/O 01/13/18 01/13/18 01/13/18 01/14/18 01/14/18 01/14/18 06:59 14:59 22:59 06:59 14:59 22:59 Intake Total 500 ml Balance 500 ml Intake IV Total 500 ml # Voids 2 Physical Exam Well-nourished well-developed black lady somewhat obese but in no distress Neck supple no JVD masses nodes or bruits Chest mildly diminished breath sounds but no rales wheezes or rhonchi Cardiovascular regular sinus rhythm (slightly tachycardic as she was examined in nuclear med and was feeling apprehensive about the scanner) but no gallop rub or murmur Extremities no clubbing cyanosis or edema Laboratory Laboratory Tests Test 01/13/18 18:15 01/14/18 01:15 01/14/18 03:10 White Blood Count 11.0 TH/MM3 Red Blood Count 4.00 MIL/MM3 Hemoglobin 12.5 GM/DL Hematocrit 36.8 % Mean Corpuscular Volume 91.9 FL Mean Corpuscular Hemoglobin 31.2 PG Mean Corpuscular Hemoglobin Concent 33.9 % Red Cell Distribution Width 15.3 % Platelet Count 453 TH/MM3 Mean Platelet Volume 7.3 FL Neutrophils (%) (Auto) 44.6 % Lymphocytes (%) (Auto) 41.1 % Monocytes (%) (Auto) 7.7 % Eosinophils (%) (Auto) 5.2 % Basophils (%) (Auto) 1.4 % Neutrophils # (Auto) 4.9 TH/MM3 Lymphocytes # (Auto) 4.5 TH/MM3 Monocytes # (Auto) 0.8 TH/MM3 Eosinophils # (Auto) 0.6 TH/MM3 Basophils # (Auto) 0.2 TH/MM3 CBC Comment DIFF FINAL Differential Comment Prothrombin Time 10.7 SEC Prothromb Time International Ratio 1.1 RATIO Activated Partial Thromboplast Time 26.7 SEC Blood Urea Nitrogen 11 MG/DL Creatinine 1.03 MG/DL Random Glucose 144 MG/DL Total Protein 8.7 GM/DL Albumin 4.1 GM/DL Calcium Level 8.8 MG/DL Magnesium Level 1.7 MG/DL Alkaline Phosphatase 96 U/L Aspartate Amino Transf (AST/SGOT) 41 U/L Alanine Aminotransferase (ALT/SGPT) 30 U/L Total Bilirubin 0.5 MG/DL Sodium Level 132 MEQ/L Potassium Level 3.4 MEQ/L Chloride Level 96 MEQ/L Carbon Dioxide Level 25.4 MEQ/L Anion Gap 11 MEQ/L Estimat Glomerular Filtration Rate 54 ML/MIN Total Creatine Kinase 73 U/L 60 U/L 70 U/L Troponin I LESS THAN 0.02 NG/ML 0.02 NG/ML LESS THAN 0.02 NG/ML B-Type Natriuretic Peptide 3 PG/ML Imaging Last 24 hours Impressions Chest X-Ray 01/13/18 8550 Signed Impressions: CONCLUSION: Mild basilar atelectasis. Assessment and Plan Assessment and Plan Patient has ruled out for ACS and is currently undergoing scanning. If negative for ischemia she will be continued on treatment for her underlying pulmonary disease and is directed to discuss further evaluation and treatment of her panic attacks with her primary care physician. Code Status Full code Discussed Condition With Discussed with nurse practitioner and patient Arnoldo Santana MD Jan 14, 2018 13:38
--- NOTE | 2018-01-14 13:45 | EKG ---
Date Performed: 01/14/2018 Time Performed: 02:42:12 PTAGE: 62 years EKG: SINUS TACHYCARDIA POSSIBLE LEFT ATRIAL ENLARGEMENT SEPTAL MYOCARDIAL INFARCTION ABNORMAL EC G PREVIOUS TRACING : 01/13/2018 16.56 Since the previous tracing, no significant change noted DOCTOR: Arnoldo Santana Interpretating Date/Time 01/16/2018 06:42:57
--- NOTE | 2018-01-14 13:46 | EKG ---
Date Performed: 01/14/2018 Time Performed: 04:47:54 PTAGE: 62 years EKG: SINUS TACHYCARDIA POSSIBLE LEFT ATRIAL ENLARGEMENT SEPTAL MYOCARDIAL INFARCTION ABNORMAL EC G PREVIOUS TRACING : 01/14/2018 02.42 Since the previous tracing, no significant change noted DOCTOR: Arnoldo Santana Interpretating Date/Time 01/14/2018 13:43:41
[2018-01-14] MEDS ORDERED: REGADENOSON INJ 0.4 MG/5 ML SYR IV ONE (15:05)
--- NOTE | 2018-01-14 15:24 | RADRPT ---
EXAM DATE: 01/14/2018 2:54 PM EDT AGE/SEX: 62 years / Female INDICATIONS:Angina. . Chest pain. CLINICAL DATA: This is the patient's initial encounter. Patient reports that signs and symptoms have been present for 1 day and indicates a pain score of 0/10. MEDICAL/SURGICAL HISTORY: Chronic obstructive pulmonary disease. Diabetes mellitus type II. H ypertension. Hysterectomy. COMPARISON: No prior exams available for comparison. DOSE: 8.6 mCi Tc 99m Myoview at rest 27.3 mCi [id number] at stress 0.4 mg Lexiscan STRESS SYMPTOMS: Headache. EJECTION FRACTION: 70 % TECHNIQUE: The patient underwent pharmacologic stress with infusion of prescribed dose. Continuous ECG tracing was monitored during stress. Gated SPECT imaging was performed after stress and conventi onal SPECT imaging was performed at rest. The examination was performed on a SPECT/CT scanner, both attenuation and non-corrected datasets were reviewed. FINDINGS: Distribution: The maximum perfused segment at stress is in the inferoseptal wall. Perfusion Study: The pattern of perfusion at stress is within normal limits with regional variation s perfusion within 25%. Pattern of perfusion at stress and rest is unchanged. The sum stress score is 0.. Gated Study: There are intact wall motion and wall thickening without hypokinetic or dyskinetic segm ents. The ejection fraction is calculated at 70%. RISK CATEGORY: Low (<1% Annual Motality Rate) CONCLUSION: 1. No evidence of stress-induced ischemia. 2. Intact wall motion with 70% ejection fraction. Electronically signed by: Jame Carroll MD 01/14/2018 3:22 PM EDT
--- NOTE | 2018-01-14 15:29 | HHI.DCPOC ---
Discharge Care Plan Diagnosis: (1) Atypical chest pain Goals to Promote Your Health * To prevent worsening of your condition and complications * To maintain your health at the optimal level Directions to Meet Your Goals Take your medications as prescribed Follow your dietary instruction Follow activity as directed Keep your appointments as scheduled Take your immunizations and boosters as scheduled If your symptoms worsen call your PCP, if no PCP go to Urgent Care Center or Emergency Room Smoking is Dangerous to Your Health. Avoid second hand smoke Call the 24-hour hour crisis hotline for domestic abuse at Heidy Smith Jan 14, 2018 15:29
[2018-01-14] MEDS ORDERED: MONTELUKAST SODIUM 10 MG TAB PO SCH (21:00)
[2018-01-14] MEDS ORDERED: BUDESONIDE-FORMOTEROL 160/4.5 MCG INHALER INH SCH (21:00)
--- NOTE | 2018-01-15 15:31 | EKG ---
Date Performed: 01/14/2018 Time Performed: 04:37:25 PTAGE: 62 years EKG: Sinus rhythm LOW QRS VOLTAGE IN PRECORDIAL LEADS BORDERLINE ECG INTERPRETATION BASED ON A DEFAULT AGE OF 40 YEARS NO PREVIOUS TRACING DOCTOR: Jose Maria Garner Interpretating Date/Time 01/15/2018 15:30:20
--- NOTE | 2018-01-15 15:38 | TR ---
Date Performed: 01/14/2018 Time Performed: 13:30:23 DOCTOR: Jose Maria Garner DRUG LIST: CLINICAL HISTORY: REASON FOR TEST: REASON FOR ENDING: OBSERVATION: CONCLUSION: COMMENTS: Lexiscan stress test was performed under standard four minute protocol. Radionuclide was injected one minute prior to ending the test. No electrocardiographic abormalities were present t o suggest ischemia. Nuclear imaging and interpretation are pending.
== END 2018-01-14 16:47 | disposition home or self-care (01) ==
LOC: NEPC 17:42 → NEDA 01-14 00:11 → NEPFCDU 01-14 02:19
PROVIDERS: ADMIT Internal Medicine Interventional Cardiology; ATTEND Internal Medicine Interventional Cardiology
DX: R07.89 Other chest pain (principal); I10 Essential (primary) hypertension; E78.5 Hyperlipidemia, unspecified; E11.9 Type 2 diabetes mellitus without complications; J44.9 Chronic obstructive pulmonary disease, unspecified; R11.0 Nausea; M54.9 Dorsalgia, unspecified; G89.29 Other chronic pain; R06.00 Dyspnea, unspecified; F41.0 Panic disorder [episodic paroxysmal anxiety]; Z87.891 Personal history of nicotine dependence; Z79.84 Long term (current) use of oral hypoglycemic drugs; R94.31 Abnormal electrocardiogram [ECG] [EKG]
CPT/HCPCS: 71045; 71275; 78452; 80053; 82550; 82948; 83735; 83880; 84484; 85025; 85610; 85730; 93005; 93017; 94640; 94664; 96361; 96372; 96374; 96375; 99285; A9502; G0378; J1815; J2060; J2785; J2930; J7040; Q9967

== ENCOUNTER 2018-09-22 11:41 | Inpatient (IN) ==
[2018-09-22] MEDS ORDERED: MethylPREDNISolone Sod Succinate Inj 125 MG/2 ML Vial IV.PUSH ONE (12:07)
--- NOTE | 2018-09-22 12:18 | ED ---
HPI General Chief Complaint: Respiratory Symptoms Stated Complaint: SOB/Chest Complaint Time Seen by Provider: 09/22/18 11:55 Source: patient Mode of arrival: ambulatory Limitations: no limitations History of Present Illness HPI Narrative: 63-year-old female who presents to the ED for evaluation of shortness of breath. Patient has had symptoms on and off for the past couple of weeks but she was seen here about 2 weeks ago and was diagnosed with asthma exacerbation. She was given antibodies for UTI as well as breathing treatments and steroids. Per patient she finished the steroids and that she is feeling like she is getting worse. She is been using inhalers and I will assess at home with minimal relief. She has not seen her doctor since been discharged. Denies any abdominal pain. States feeling a tightness in her chest. Discomfort is 4 out of 10. Shortness of breath gets worse with movement as well as with just laying flat. No history of CHF. Denies any trauma or injury. No recent travel. Related Data Home Medications Medication Instructions Recorded Confirmed amlodipine 10 mg PO DAILY 07/18/18 09/22/18 metformin 1,000 mg PO BID 07/18/18 09/22/18 Lactobacillus acidophilus 1,000 mmu cells PO DAILY 08/31/18 09/22/18 allopurinol 100 mg PO DAILY 08/31/18 09/22/18 alprazolam 0.25 mg PO DAILY PRN 08/31/18 09/22/18 ammonium lactate 1 applic TOPICAL BID PRN 08/31/18 09/22/18 aspirin 81 mg PO DAILY 08/31/18 09/22/18 budesonide-formoterol 2 puff INHALATION Q12H 08/31/18 09/22/18 buspirone 10 mg PO TID 08/31/18 09/22/18 chlorhexidine gluconate 1 applic TOPICAL 3XW 08/31/18 09/22/18 cyanocobalamin (vitamin B-12) 2,000 mcg PO DAILY 08/31/18 09/22/18 cyclobenzaprine 10 mg PO TID PRN 08/31/18 09/22/18 cyclosporine 1 drp EACH EYE Q12H 08/31/18 09/22/18 fluoxetine 40 mg PO DAILY 08/31/18 09/22/18 gabapentin 200 mg PO HS 08/31/18 09/22/18 ketoconazole 1 applic TOPICAL BID PRN 08/31/18 09/22/18 montelukast 10 mg PO DAILY 08/31/18 09/22/18 [id number] 1 applic TOPICAL DAILY PRN 08/31/18 09/22/18 [Triple Antibiotic] pravastatin 40 mg PO HS 08/31/18 09/22/18 tiotropium bromide 2 puff INHALATION DAILY 08/31/18 09/22/18 omeprazole 40 mg PO DAILY 09/10/18 09/22/18 Previous Rx's Medication Instructions Recorded tramadol 50 mg PO Q6H PRN #12 tab 09/02/18 benzonatate [Tessalon Perles] 100 mg PO Q4H PRN #20 cap 09/10/18 ondansetron HCl [Zofran] 4 mg PO Q8H PRN #20 tab 09/10/18 albuterol sulfate [Ventolin HFA] 2 puff INHALATION Q4-6H PRN #1 09/24/18 inhaler ipratropium-albuterol 1 amp NEB Q4HR NEB PRN #100 ml 09/24/18 levofloxacin 500 mg PO DAILY 5 Days #5 tab 09/24/18 losartan 100 mg PO DAILY #60 tab 09/24/18 prednisone 20 mg PO DAILY #11 tab 09/24/18 Allergies Allergy/AdvReac Type Severity Reaction Status Date / Time No Known Allergies Allergy Verified 09/22/18 12:04 Review of Systems ROS: all other systems reviewed are negative [facility] Medical History Medical History COPD (chronic obstructive pulmonary disease) (Acute) Chronic back pain (Acute) Diabetes (Acute) Dry eyes (Acute) Eczema (Acute) H/O: hysterectomy (Acute) Herniation of intervertebral disc between L4 and L5 (Acute) Hypercholesteremia (Acute) Hypertension (Acute) Restless leg syndrome (Acute) Surgical History Surgical History Hx of cholecystectomy (Acute) Social History Social History Substance History: No History of Abuse Second Hand Smoke Exposure: No Smoking Status: Former smoker Tobacco Type: Cigarettes How Often Do You Have a Drink Containing Alcohol: Monthly or less Recent Travel in [facility] within the Last 8 Weeks: No Recent Out of Country Travel within the Last 8 Weeks: No Substance Abuse Detail Marijuana: Substance Use Status: Active Route Used 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 SKIN: Focused skin assessment warm/dry. HEAD: Atraumatic. Normocephalic. EYES: Pupils equal and round. No scleral icterus. No injection or drainage. ENT: No nasal bleeding or discharge. Mucous membranes pink and moist. Tongue is midline. No uvula deviation. NECK: Trachea midline. No JVD. CARDIOVASCULAR: Regular rate and rhythm. No murmur appreciated. RESPIRATORY: No accessory muscle use. Wheezing heard in all lung ly. Breath sounds equal bilaterally. GASTROINTESTINAL: Abdomen soft, non-tender, nondistended. Hepatic and splenic margins not palpable. MUSCULOSKELETAL: No obvious deformities. No clubbing. No cyanosis. No edema. Full range of motion of the upper and lower extremities bilaterally. 2+ pulses bilaterally. NEUROLOGICAL: Awake and alert. No obvious cranial nerve deficits. Motor grossly within normal limits. Normal speech. PSYCHIATRIC: Appropriate mood and affect; insight and judgment normal. Course Initial Documented Vital Signs Temperature 98.6 F 09/22/18 11:43 Pulse Rate 104 H 09/22/18 11:43 Respiratory Rate 32 H 09/22/18 11:43 Blood Pressure 156/77 H 09/22/18 11:43 Pulse Oximetry 96 09/22/18 11:43 Last Documented Vital Signs Temperature 97.9 F 09/24/18 11:55 Pulse Rate 98 H 09/24/18 12:36 Respiratory Rate 16 09/24/18 12:36 Blood Pressure 138/78 09/24/18 12:36 Pulse Oximetry 96 09/24/18 11:55 Medical Decision Making DAVION Attestation DAVION supervised visit: Yes Attestation: I, Dr. Angelo, have reviewed the advance practice practitioner's documentation and am in agreement, met with the patient face to face, made the diagnosis, and the medical decision making was done by me. *My assessment and Findings: Acute exacerbation of asthma. Chest pain. MDM Narrative Medical decision making narrative: 63-year-old female who presents to the ED for evaluation of shortness of breath with exertion. Patient was properly examined and was found to have signs and symptoms consistent with appears to be possible asthma exacerbation. Patient does have wheezing on exam. Labs and imaging were ordered. Patient was given breathing treatments and Solu-Medrol here. Labs and imaging showed cardiomegaly and compensated HF. I was told half an hour ago for evaluation of chest pain. Pressure like. Given aspirin and nitroglycerin. Still wheezing. 3 more breathing treatments given. Patient's O2 in the low 90s while I was in the room. Case discussed with my attending Dr Angelo who agrees to admission. Case discussed with Dr Waldron who agrees to admi the patient to his service. Medical Screen Exam Complete: Yes Emergency Medical Condition: Yes Differential Diagnosis Differential Diagnosis: Asthma exacerbation versus COPD exacerbation versus ACS versus n STEMI versus pneumonia Medical Records Medical records reviewed: Yes I reviewed the patient's medical records. Lab Data Lab results reviewed: Yes I reviewed the patient's lab results. Result diagrams: 09/22/18 12:11 09/22/18 12:11 Lab Results 09/22/18 09/22/18 09/22/18 Range/Units 12:11 12:11 12:11 WBC 9.6 (4.0-11.0) th/mm3 RBC 3.26 L (4.00-5.30) mil/mm3 Hgb 10.4 L (11.6-15.3) gm/dL Hct 29.1 L (35.0-46.0) % MCV 89.4 (80.0-100.0) fL MCH 31.9 (27.0-34.0) pg MCHC 35.7 (32.0-36.0) % RDW 13.9 (11.6-17.2) % Plt Count 369 (150-450) th/mm3 MPV 6.6 L (7.0-11.0) fL Neut % (Auto) 62.0 (16.0-70.0) % Lymph % (Auto) 25.8 (9.0-44.0) % Page % (Auto) 8.3 H (0.0-8.0) % Eos % (Auto) 3.4 (0.0-4.0) % Baso % (Auto) 0.5 (0.0-2.0) % Neut # (Auto) 6.0 (1.8-7.7) th/mm3 Lymph # (Auto) 2.5 (1.0-4.8) th/mm3 Page # (Auto) 0.8 (0.0-0.9) th/mm3 Eos # (Auto) 0.3 (0.0-0.4) th/mm3 Baso # (Auto) 0.0 (0.0-0.2) th/mm3 WBC Differential . Differential Comment Auto diff final Sodium 135 L (136-145) meq/L Potassium 3.5 (3.5-5.1) meq/L Chloride 102 (98-107) meq/L Carbon Dioxide 23.6 (21.0-32.0) meq/L Anion Gap 9 (5-15) meq/L BUN 9 (7-18) mg/dL Creatinine 0.83 (0.50-1.00) mg/dL Estimated GFR 69 L (>89) mL/min POC Glucose (68-110) mg/dl Random Glucose 135 H (74-106) mg/dL Calcium 7.3 L* (8.5-10.1) mg/dL Calcium Adj for Albumin 8.2 L (8.5-10.1) mg/dL Total Bilirubin 0.2 (0.2-1.0) mg/dL AST 13 L (15-37) U/L ALT 19 (10-53) U/L Alkaline Phosphatase 91 (45-117) U/L Total Creatine Kinase 48 (26-192) U/L Troponin I Less than 0.02 L (0.02-0.05) ng/mL B-Natriuretic Peptide (0-100) pg/mL Total Protein 6.5 (6.4-8.2) g/dL Albumin 2.9 L (3.4-5.0) g/dL Lipase 176 (73-393) U/L 09/22/18 09/22/18 09/22/18 Range/Units 12:26 16:00 17:43 WBC (4.0-11.0) th/mm3 RBC (4.00-5.30) mil/mm3 Hgb (11.6-15.3) gm/dL Hct (35.0-46.0) % MCV (80.0-100.0) fL MCH (27.0-34.0) pg MCHC (32.0-36.0) % RDW (11.6-17.2) % Plt Count (150-450) th/mm3 MPV (7.0-11.0) fL Neut % (Auto) (16.0-70.0) % Lymph % (Auto) (9.0-44.0) % Page % (Auto) (0.0-8.0) % Eos % (Auto) (0.0-4.0) % Baso % (Auto) (0.0-2.0) % Neut # (Auto) (1.8-7.7) th/mm3 Lymph # (Auto) (1.0-4.8) th/mm3 Page # (Auto) (0.0-0.9) th/mm3 Eos # (Auto) (0.0-0.4) th/mm3 Baso # (Auto) (0.0-0.2) th/mm3 WBC Differential Differential Comment Sodium (136-145) meq/L Potassium (3.5-5.1) meq/L Chloride (98-107) meq/L Carbon Dioxide (21.0-32.0) meq/L Anion Gap (5-15) meq/L BUN (7-18) mg/dL Creatinine (0.50-1.00) mg/dL Estimated GFR (>89) mL/min POC Glucose 278 H (68-110) mg/dl Random Glucose (74-106) mg/dL Calcium (8.5-10.1) mg/dL Calcium Adj for Albumin (8.5-10.1) mg/dL Total Bilirubin (0.2-1.0) mg/dL AST (15-37) U/L ALT (10-53) U/L Alkaline Phosphatase (45-117) U/L Total Creatine Kinase (26-192) U/L Troponin I Less than 0.02 L (0.02-0.05) ng/mL B-Natriuretic Peptide 60 (0-100) pg/mL Total Protein (6.4-8.2) g/dL Albumin (3.4-5.0) g/dL Lipase (73-393) U/L 09/22/18 09/22/18 09/23/18 Range/Units 21:41 21:47 08:14 WBC (4.0-11.0) th/mm3 RBC (4.00-5.30) mil/mm3 Hgb (11.6-15.3) gm/dL Hct (35.0-46.0) % MCV (80.0-100.0) fL MCH (27.0-34.0) pg MCHC (32.0-36.0) % RDW (11.6-17.2) % Plt Count (150-450) th/mm3 MPV (7.0-11.0) fL Neut % (Auto) (16.0-70.0) % Lymph % (Auto) (9.0-44.0) % Page % (Auto) (0.0-8.0) % Eos % (Auto) (0.0-4.0) % Baso % (Auto) (0.0-2.0) % Neut # (Auto) (1.8-7.7) th/mm3 Lymph # (Auto) (1.0-4.8) th/mm3 Page # (Auto) (0.0-0.9) th/mm3 Eos # (Auto) (0.0-0.4) th/mm3 Baso # (Auto) (0.0-0.2) th/mm3 WBC Differential Differential Comment Sodium (136-145) meq/L Potassium (3.5-5.1) meq/L Chloride (98-107) meq/L Carbon Dioxide (21.0-32.0) meq/L Anion Gap (5-15) meq/L BUN (7-18) mg/dL Creatinine (0.50-1.00) mg/dL Estimated GFR (>89) mL/min POC Glucose 199 H 186 H (68-110) mg/dl Random Glucose (74-106) mg/dL Calcium (8.5-10.1) mg/dL Calcium Adj for Albumin (8.5-10.1) mg/dL Total Bilirubin (0.2-1.0) mg/dL AST (15-37) U/L ALT (10-53) U/L Alkaline Phosphatase (45-117) U/L Total Creatine Kinase (26-192) U/L Troponin I Less than 0.02 L (0.02-0.05) ng/mL B-Natriuretic Peptide (0-100) pg/mL Total Protein (6.4-8.2) g/dL Albumin (3.4-5.0) g/dL Lipase (73-393) U/L 09/23/18 09/23/18 09/23/18 Range/Units 13:21 17:22 20:31 WBC (4.0-11.0) th/mm3 RBC (4.00-5.30) mil/mm3 Hgb (11.6-15.3) gm/dL Hct (35.0-46.0) % MCV (80.0-100.0) fL MCH (27.0-34.0) pg MCHC (32.0-36.0) % RDW (11.6-17.2) % Plt Count (150-450) th/mm3 MPV (7.0-11.0) fL Neut % (Auto) (16.0-70.0) % Lymph % (Auto) (9.0-44.0) % Page % (Auto) (0.0-8.0) % Eos % (Auto) (0.0-4.0) % Baso % (Auto) (0.0-2.0) % Neut # (Auto) (1.8-7.7) th/mm3 Lymph # (Auto) (1.0-4.8) th/mm3 Page # (Auto) (0.0-0.9) th/mm3 Eos # (Auto) (0.0-0.4) th/mm3 Baso # (Auto) (0.0-0.2) th/mm3 WBC Differential Differential Comment Sodium (136-145) meq/L Potassium (3.5-5.1) meq/L Chloride (98-107) meq/L Carbon Dioxide (21.0-32.0) meq/L Anion Gap (5-15) meq/L BUN (7-18) mg/dL Creatinine (0.50-1.00) mg/dL Estimated GFR (>89) mL/min POC Glucose 199 H 211 H 217 H (68-110) mg/dl Random Glucose (74-106) mg/dL Calcium (8.5-10.1) mg/dL Calcium Adj for Albumin (8.5-10.1) mg/dL Total Bilirubin (0.2-1.0) mg/dL AST (15-37) U/L ALT (10-53) U/L Alkaline Phosphatase (45-117) U/L Total Creatine Kinase (26-192) U/L Troponin I (0.02-0.05) ng/mL B-Natriuretic Peptide (0-100) pg/mL Total Protein (6.4-8.2) g/dL Albumin (3.4-5.0) g/dL Lipase (73-393) U/L 09/24/18 Range/Units 09:55 WBC (4.0-11.0) th/mm3 RBC (4.00-5.30) mil/mm3 Hgb (11.6-15.3) gm/dL Hct (35.0-46.0) % MCV (80.0-100.0) fL MCH (27.0-34.0) pg MCHC (32.0-36.0) % RDW (11.6-17.2) % Plt Count (150-450) th/mm3 MPV (7.0-11.0) fL Neut % (Auto) (16.0-70.0) % Lymph % (Auto) (9.0-44.0) % Page % (Auto) (0.0-8.0) % Eos % (Auto) (0.0-4.0) % Baso % (Auto) (0.0-2.0) % Neut # (Auto) (1.8-7.7) th/mm3 Lymph # (Auto) (1.0-4.8) th/mm3 Page # (Auto) (0.0-0.9) th/mm3 Eos # (Auto) (0.0-0.4) th/mm3 Baso # (Auto) (0.0-0.2) th/mm3 WBC Differential Differential Comment Sodium (136-145) meq/L Potassium (3.5-5.1) meq/L Chloride (98-107) meq/L Carbon Dioxide (21.0-32.0) meq/L Anion Gap (5-15) meq/L BUN (7-18) mg/dL Creatinine (0.50-1.00) mg/dL Estimated GFR (>89) mL/min POC Glucose 194 H (68-110) mg/dl Random Glucose (74-106) mg/dL Calcium (8.5-10.1) mg/dL Calcium Adj for Albumin (8.5-10.1) mg/dL Total Bilirubin (0.2-1.0) mg/dL AST (15-37) U/L ALT (10-53) U/L Alkaline Phosphatase (45-117) U/L Total Creatine Kinase (26-192) U/L Troponin I (0.02-0.05) ng/mL B-Natriuretic Peptide (0-100) pg/mL Total Protein (6.4-8.2) g/dL Albumin (3.4-5.0) g/dL Lipase (73-393) U/L Imaging Data Attestation: I personally reviewed and interpreted this imaging study as follows : Radiologist's impression: Chest X-Ray 09/22/18 11:57 CONCLUSION: Cardiac megaly with mild congestive failure Minimal consolidative changes retrocardiac region left base ECG Data Attestation: I personally reviewed and interpreted this ECG as follows: Interpretation: EKG shows sinus rhythm with no sign of acute ischemia read by me and attending. Ventricular rate of 97 bpm, WV interval 180 ms. Discharge Plan Discharge Disposition Patient Disposition: ED Admit(ED Internal Use Only) Discharge Condition Condition: Stable Discharge Order Discharge Orders: Discharge Order (Routine); Ordered 09/24/18 Ordered By: Jessica Eric ED Use Only Admit Order (Routine); Ordered 09/22/18 Ordered By: Kirill Camejo Discharge Details Anticipated Discharge Date: 09/24/18 Discharge Comment: Check manual BP q2h. Ok to discharge when SBP 160s or less. Diagnosis: Asthma with exacerbation, Chest pain, rule out acute myocardial infarction Physicians Team ED Provider: Geraldo Angelo ED Midlevel Provider: Kirill Camejo Primary Care Provider: [facility] Attending Provider: Tess Thapa Status ED Status: Left Department Discharge Information Discharge Date/Time: 09/22/18 15:58
[2018-09-22 12:20] LABS: Baso % (Auto) 0.5 % (0.0-2.0); Eos # (Auto) 0.3 th/mm3 (0.0-0.4); Eos % (Auto) 3.4 % (0.0-4.0); Hematocrit 29.1 % (35.0-46.0); Hemoglobin 10.4 gm/dL (11.6-15.3); Lymph # (Auto) 2.5 th/mm3 (1.0-4.8); Lymph % (Auto) 25.8 % (9.0-44.0); Mean Corpuscular HGB Conc 35.7 % (32.0-36.0); Mean Corpuscular Hemoglobin 31.9 pg (27.0-34.0); Mean Corpuscular Volume 89.4 fL (80.0-100.0); Mean Platelet Volume 6.6 fL (7.0-11.0); Mono # (Auto) 0.8 th/mm3 (0.0-0.9); Mono % (Auto) 8.3 % (0.0-8.0); Platelet Count 369 th/mm3 (150-450); Red Blood Count 3.26 mil/mm3 (4.00-5.30); Red Cell Distribution Width 13.9 % (11.6-17.2); White Blood Count 9.6 th/mm3 (4.0-11.0)
--- NOTE | 2018-09-22 12:33 | XR ---
EXAM DATE: 09/22/2018 12:22 PM EST AGE/SEX: 63 years / Female INDICATIONS: Chest pain. CLINICAL DATA: This is the patient's initial encounter. Patient reports that signs and symptoms have been present for 1 day and indicates a pain score of 6/10. MEDICAL/SURGICAL HISTORY: Congestive heart failure. None. COMPARISON: [facility] [place], CHEST 1V SINGLE AP, 09/10/2018. . FINDINGS: Cardiomegaly with mild interstitial edema. Minimal parenchymal changes left base. No pneumothorax. No pleural effusion. Degenerative changes about both shoulders. CONCLUSION: Cardiac megaly with mild congestive failure Minimal consolidative changes retrocardiac region left base Electronically signed by: Boris Zapata MD Board Certified Radiologist 09/22/2018 12:31 PM EST
[2018-09-22 12:50] LABS: Alanine Aminotransferase 19 U/L (10-53); Albumin 2.9 g/dL (3.4-5.0); Alkaline Phosphatase 91 U/L (45-117); Anion Gap 9 meq/L (5-15); Aspartate Aminotransferase 13 U/L (15-37); Blood Urea Nitrogen 9 mg/dL (7-18); Calcium 7.3 mg/dL (8.5-10.1); Carbon Dioxide 23.6 meq/L (21.0-32.0); Chloride 102 meq/L (98-107); Glomerular Filtration Rate 69 mL/min (>89); Glucose,Random 135 mg/dL (74-106); Potassium 3.5 meq/L (3.5-5.1); Sodium 135 meq/L (136-145); Total Protein 6.5 g/dL (6.4-8.2)
[2018-09-22 13:25] LABS: Creatine Kinase 48 U/L (26-192)
[2018-09-22] MEDS ORDERED: Aspirin 325 MG Tablet PO ONE (14:22)
[2018-09-22] MEDS ORDERED: Dextrose 50% in Water 50 ML Vial IV.PUSH PRN (15:01)
[2018-09-22] MEDS ORDERED: Benzonatate 100 MG Capsule PO PRN (15:03)
--- NOTE | 2018-09-22 15:07 | P.HPIM ---
History of Present Illness Primary Care Physician: [facility] Chief Complaint: shortness of breath History of Present Illness: patient is a 63 y/o female with history of COPD, hypertension, dyslipidemia who presented to ER with shortness of breath. she says that she had some sob about two weeks ago for which she received a course of prednisone and antibiotic. but today her sob started to get worse this morning. she used her nebulizer with not that much of relief. she has some cough but with no fever or chills. she was also complaining of some left sided chest pain with no radiation which was worse with inspiration. Review of Systems Review of Systems: all other systems reviewed are negative [facility] Medical History Medical History COPD (chronic obstructive pulmonary disease) (Acute) Chronic back pain (Acute) Diabetes (Acute) Dry eyes (Acute) Eczema (Acute) H/O: hysterectomy (Acute) Herniation of intervertebral disc between L4 and L5 (Acute) Hypercholesteremia (Acute) Hypertension (Acute) Restless leg syndrome (Acute) Surgical History Surgical History Hx of cholecystectomy (Acute) Social History Social History Substance History: Active Abuse Second Hand Smoke Exposure: No Smoking Status: Former smoker Tobacco Type: Cigarettes How Often Do You Have a Drink Containing Alcohol: 2 to 4 times a month Recent Travel in [facility] within the Last 8 Weeks: No Recent Out of Country Travel within the Last 8 Weeks: No Substance Abuse Detail Marijuana: Substance Use Status: Active Route Used 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 Immunization History Tetanus Immunization: <5 Years Medications and Allergies Allergies Allergy/AdvReac Type Severity Reaction Status Date / Time No Known Allergies Allergy Verified 09/22/18 12:04 Home Medications Medication Instructions Recorded Confirmed Type albuterol sulfate [Ventolin HFA] 2 puff INHALATION Q4-6H PRN 07/18/18 09/22/18 History amlodipine 10 mg PO DAILY 07/18/18 09/22/18 History metformin 1,000 mg PO BID 07/18/18 09/22/18 History Lactobacillus acidophilus 1,000 mmu cells PO DAILY 08/31/18 09/22/18 History albuterol sulfate 1.25 mg INHALATION QID PRN 08/31/18 09/22/18 History allopurinol 100 mg PO DAILY 08/31/18 09/22/18 History alprazolam 0.25 mg PO DAILY PRN 08/31/18 09/22/18 History ammonium lactate 1 applic TOPICAL BID PRN 08/31/18 09/22/18 History aspirin 81 mg PO DAILY 08/31/18 09/22/18 History budesonide-formoterol 2 puff INHALATION Q12H 08/31/18 09/22/18 History buspirone 10 mg PO TID 08/31/18 09/22/18 History chlorhexidine gluconate 1 applic TOPICAL 3XW 08/31/18 09/22/18 History cyanocobalamin (vitamin B-12) 2,000 mcg PO DAILY 08/31/18 09/22/18 History cyclobenzaprine 10 mg PO TID PRN 08/31/18 09/22/18 History cyclosporine 1 drp EACH EYE Q12H 08/31/18 09/22/18 History fluoxetine 40 mg PO DAILY 08/31/18 09/22/18 History gabapentin 200 mg PO HS 08/31/18 09/22/18 History ketoconazole 1 applic TOPICAL BID PRN 08/31/18 09/22/18 History losartan 50 mg PO DAILY 08/31/18 09/22/18 History montelukast 10 mg PO DAILY 08/31/18 09/22/18 History gujqrbcu-[id number]-yahqvqgdQ 1 applic TOPICAL DAILY PRN 08/31/18 09/22/18 History [Triple Antibiotic] pravastatin 40 mg PO HS 08/31/18 09/22/18 History tiotropium bromide 2 puff INHALATION DAILY 08/31/18 09/22/18 History omeprazole 40 mg PO DAILY 09/10/18 09/22/18 History Active Medications: Active Medications Albuterol (Duoneb Neb (Ese)) 1 ampul NEB Q15M ESE Stop: 09/22/18 15:16 Physical Exam Vital signs: Vital Signs 09/22/18 11:43 09/22/18 12:04 09/22/18 12:06 Temperature 98.6 F Pulse Rate 104 H 100 H Respiratory Rate 32 H 19 Blood Pressure 156/77 H 164/77 H Pulse Oximetry 96 96 96 09/22/18 12:29 09/22/18 12:30 09/22/18 13:07 Temperature Pulse Rate 92 H 92 H 101 H Respiratory Rate 15 15 21 Blood Pressure 149/66 H Pulse Oximetry 95 Intake & Output 09/21/18 09/22/18 09/22/18 18:59 06:59 18:59 Weight 97.522 kg Constitutional mild distress Routine HEENT Exam Eye: Present PERRL Routine Neck Exam Present supple Routine Respiratory Exam Present CTA bilaterally and wheezes Comments: minimal bilateral wheezing. Routine Cardiovascular Exam Present tachycardia Routine Abdominal Exam Present soft Routine Extremities Exam Comments: no pedal edema. Routine Neurological Exam Present alert and oriented X3 Results Labs CBC & Chem 7: 09/22/18 12:11 09/22/18 12:11 Imaging Impressions Chest X-Ray 09/22/18 11:57 CONCLUSION: Cardiac megaly with mild congestive failure Minimal consolidative changes retrocardiac region left base Caprini VTE Risk Assessment Caprini VTE Risk Assessment: Moderate/High Risk (score >= 2) Caprini Risk Assessment Model: Point Value = 1 Point Value = 2 Point Value = 3 Point Value = 5 Age 41-60 Minor surgery BMI > 25 kg/m2 Swollen legs Varicose veins or History of unexplained or recurrent spontaneous Oral contraceptives or hormone replacement Sepsis (< 1 month) Serious lung disease, including pneumonia (< 1 month) Abnormal pulmonary function Acute myocardial infarction Congestive heart failure (< 1 month) History of inflammatory bowel disease Medical patient at bed rest Age 61-74 Arthroscopic surgery Major open surgery (> 45 min) Laparoscopic surgery (> 45 min) Malignancy Confined to bed (> 72 hours) Immobilizing plaster cast Central venous access Age >= 75 History of VTE Family history of VTE Factor V Leiden Prothrombin [id number] Lupus anticoagulant Anticardiolipin antibodies Elevated serum homocysteine Heparin-induced thrombocytopenia Other congenital or acquired thrombophilia Stroke (< 1 month) Elective arthroplasty Hip, pelvis, or leg fracture Acute spinal cord injury (< 1 month) Prophylaxis Regimen: Total Risk Factor Score Risk Level Prophylaxis Regimen 0-1 Low Early ambulation 2 Moderate Order ONE of the following: *Sequential Compression Device (SCD) *Heparin 5000 units SQ BID 3-4 Higher Order ONE of the following medications: *Heparin 5000 units SQ TID *Enoxaparin/Lovenox 40 mg SQ daily (WT < 150 kg, CrCl > 30 mL/min) *Enoxaparin/Lovenox 30 mg SQ daily (WT < 150 kg, CrCl > 10-29 mL/min) *Enoxaparin/Lovenox 30 mg SQ BID (WT < 150 kg, CrCl > 30 mL/min) AND/OR *Sequential Compression Device (SCD) 5 or more Highest Order ONE of the following medications: *Heparin 5000 units SQ TID (Preferred with Epidurals) *Enoxaparin/Lovenox 40 mg SQ daily (WT < 150 kg, CrCl > 30 mL/min) *Enoxaparin/Lovenox 30 mg SQ daily (WT < 150 kg, CrCl > 10-29 mL/min) *Enoxaparin/Lovenox 30 mg SQ BID (WT < 150 kg, CrCl > 30 mL/min) AND *Sequential Compression Device (SCD) Assessment and Plan Plan A/P - COPD exacerbation keep on oxygen as needed to keep O2 sat > 90%- continue with neb treatment ( scheduled and prn) and IV steroids- start on IV Levaquin. resume Symbicort and Spiriva -chest pain- atypical will trend the cardiac enzymes. -Hypertension/ Dyslipidemia resume home meds. -diabetes mellitus hold Metformin- start on accu-check with SSI -DVT prophylaxis with subq lovenox. Discussed Condition With: ER mid-level/ the patient. Discharge Planning: home; within the next 24-48 hrs.
[2018-09-22] MEDS ORDERED: ALPRAZolam 0.25 MG Tablet PO PRN (17:00)
[2018-09-22] MEDS: Budesonide-Formoterol 160/4.5 MCG 6 GM Inhaler INH SCH (17:34)
[2018-09-22] MEDS: Levofloxacin 500 mg Premix Inj 500 MG/100 ML PIGGYBACK IV.SIG SCH (17:38)
[2018-09-22] MEDS: Insulin NovoLOG Aspart Correctional Sugar Inj SQ SCH ×2 (17:48→21:54)
[2018-09-22] MEDS ORDERED: CYCLOSPORINE EACH EYE SCH (18:00)
[2018-09-22] MEDS ORDERED: MethylPREDNISolone Sod Succinate Inj 40 MG/ML Vial IV.PUSH SCH (20:00)
[2018-09-22] MEDS: Gabapentin 100 MG Capsule PO SCH (21:50)
[2018-09-22] MEDS: MethylPREDNISolone Sod Succinate Inj 40 MG/ML Vial IV.PUSH SCH (21:50)
[2018-09-23] MEDS: Acetaminophen 325 MG Tablet PO PRN ×2 (03:42→08:16)
[2018-09-23] MEDS: Budesonide-Formoterol 160/4.5 MCG 6 GM Inhaler INH SCH ×2 (04:36→16:03)
[2018-09-23] MEDS: MethylPREDNISolone Sod Succinate Inj 40 MG/ML Vial IV.PUSH SCH ×3 (05:10→17:11)
--- NOTE | 2018-09-23 07:57 | P.PNIM ---
Subjective Interval history: Follow-up for asthma/COPD exacerbation. Patient reports continued significant shortness of breath, dyspnea with exertion. She states she just ambulated to the restroom and had a difficulty time recovering upon returning. She reports a continued dry intractable cough. Denies fevers or chills. She reports diffuse pleuritic chest pains, worse with cough and deep inspiration. She also reports a constant global throbbing headache, requesting tramadol as she takes this at home. She also reports sinus pressure and states she has problems with seasonal allergies. She would like to try some Flonase and nasal sprays. She otherwise denies any other medical complaints. She does not feel ready for discharge. Physical Exam Vital signs: Vital Signs 09/22/18 11:43 09/22/18 12:04 09/22/18 12:06 Temperature 98.6 F Pulse Rate 104 H 100 H Respiratory Rate 32 H 19 Blood Pressure 156/77 H 164/77 H Pulse Oximetry 96 96 96 09/22/18 12:29 09/22/18 12:30 09/22/18 13:07 Temperature Pulse Rate 92 H 92 H 101 H Respiratory Rate 15 15 21 Blood Pressure 149/66 H Pulse Oximetry 95 09/22/18 15:10 09/22/18 15:11 09/22/18 16:00 Temperature 96.0 F L Pulse Rate 101 H 101 H 110 H Respiratory Rate 15 16 22 Blood Pressure 169/74 H Pulse Oximetry 92 L 93 L 09/22/18 19:37 09/22/18 19:55 09/22/18 20:00 Temperature 98.5 F Pulse Rate 104 H 107 H Respiratory Rate 20 16 Blood Pressure 147/65 H Pulse Oximetry 93 L 92 L 92 L 09/22/18 23:39 09/22/18 23:45 09/23/18 03:43 Temperature 98.5 F Pulse Rate 101 H 104 H 105 H Respiratory Rate 18 20 20 Blood Pressure 156/89 H 158/70 H Pulse Oximetry 94 L 90 L 09/23/18 03:50 09/23/18 04:36 Temperature Pulse Rate 100 H Respiratory Rate 17 20 Blood Pressure Pulse Oximetry Intake & Output 09/22/18 09/23/18 09/23/18 18:59 06:59 18:59 Intake Total 100 / 100 Balance 100 / 100 Weight 97.522 kg Intake: IV 100 / 100 Levaquin 500 mg Premix Inj 500 100 / 100 mg In 100 ml @ 100 mls/hr IV. SIG Q24H [facility] Rx#:[id number] Other: # Voids 0 5 Date of Last Bowel Movement 09/22/18 Weight On Admission 97.522 kg Narrative: GENERAL: Well-nourished, well-developed pleasant middle-aged AA female patient in NAD. SKIN: Warm and dry. No rash. HEENT: Pupils equal and round. Mucous membranes pink and moist. CARDIOVASCULAR: Regular rate and rhythm. No murmur appreciated. RESPIRATORY: Expiratory wheezing with decreased air movement throughout all lung ly. Breath sounds equal bilaterally. GASTROINTESTINAL: Abdomen soft, non-tender, nondistended. Normoactive bowel sounds x4. MUSCULOSKELETAL: No obvious deformities. Extremities without clubbing, cyanosis , or edema. NEUROLOGICAL: Awake and alert. No obvious cranial nerve deficits. Moving all extremities spontaneously. Normal speech. PSYCHIATRIC: Appropriate mood and affect; insight and judgment normal. Results Labs CBC & Chem 7: 09/22/18 12:11 09/22/18 12:11 Imaging Imaging: Impressions Chest X-Ray 09/22/18 11:57 CONCLUSION: Cardiac megaly with mild congestive failure Minimal consolidative changes retrocardiac region left base Assessment and Plan Plan 63-year-old female with history of COPD, HTN, HLD, diabetes, chronic back pain, presents with worsening shortness of breath Acute COPD exacerbation w/hypoxia, suspected developing community acquired pneumonia: O2 sat as low as 90% -CXR reviewed, shows cardiomegaly with mild congestive failure; minimal consolidative changes retrocardiac region left base -Continue IV steroids, increase IV Solu-Medrol to 40 mg q6h -Continue duo nebs every 4 hours -Continue patient's Symbicort and Spiriva -Started on antibiotics with IV Levaquin -Continue Mucinex bid and Tessalon Perles tid -O2 as needed to keep O2 sat greater than 90% -Slowly improving, however not yet ready for discharge Nasal congestion: Suspect secondary to seasonal allergies vs viral illness -Started on Flonase and [place] nasal spray -O2 via simple mask as needed Chest pain: Atypical, likely pleuritic secondary to intractable cough -ACS ruled out with negative serial cardiac enzymes x3 -Give tramadol as needed for pain -Control cough Uncontrolled hypertension: With headache. BP up to 186/88 today, likely exacerbated by steroids -Continue patient's amlodipine 10 mg daily, losartan 50 mg daily -Clonidine as needed -Monitor BP, adjust antihypertensives as needed Diabetes mellitus: Chronic -Hold patient's metformin -Monitor Accu-Cheks, cover with SSI Hyperlipidemia: Chronic -Continue patient's home statin DVT prophylaxis: Divina Attending Attestation patient was seen and examined today. says that her sob is better although still has some exertional dyspnea. complaining of ' sinus headache' on exam; with no wheezing. continue with neb treatment, taper down IV steroids and continue antibiotic. rest of assessment and plan as noted above. Progress Note: Quality VTE Deep Vein Thrombosis/Pulmonary Embolism Present on Admission: No
[2018-09-23] MEDS: amLODIPine 10 MG Tablet PO SCH (08:18)
[2018-09-23] MEDS: Montelukast 10 MG Tablet PO SCH (08:18)
[2018-09-23] MEDS: FLUoxetine 20 MG Capsule PO SCH (08:18)
[2018-09-23] MEDS: Allopurinol 100 MG Tablet PO SCH (08:18)
[2018-09-23] MEDS: Enoxaparin Inj 40 MG/0.4 ML Syringe SQ SCH (08:19)
[2018-09-23] MEDS: Insulin NovoLOG Aspart Correctional Sugar Inj SQ SCH ×4 (08:27→20:39)
[2018-09-23] MEDS ORDERED: Acetaminophen 325 MG Tablet PO PRN (09:10)
[2018-09-23] MEDS: Tiotropium Bromide 18 MCG/ACT Inhaler INH SCH (09:20)
[2018-09-23] MEDS: Benzonatate 100 MG Capsule PO SCH ×2 (11:12→17:11)
[2018-09-23] MEDS: Sodium Chloride 0.65% Nasal Spray 45 ML Bottle EACH NARE SCH ×4 (11:12→23:11)
[2018-09-23] MEDS: guaiFENesin 600 MG ER Tablet PO SCH ×2 (11:12→20:27)
--- NOTE | 2018-09-23 13:32 | ECG ---
Date Performed: 09/22/2018 Time Performed: 12:12:04 PTAGE: 63 years EKG: Sinus rhythm WITH SINUS ARRHYTHMIA POSSIBLE LEFT ATRIAL ENLARGEMENT BORDERLINE ECG PREVIOUS TRACING : 09/10/2018 15.50 Since the previous tracing, no significant change noted DOCTOR: Star Holloway Interpretating Date/Time 09/23/2018 13:31:30
[2018-09-23] MEDS: Levofloxacin 500 mg Premix Inj 500 MG/100 ML PIGGYBACK IV.SIG SCH (17:10)
[2018-09-23] MEDS: Gabapentin 100 MG Capsule PO SCH (20:26)
[2018-09-24] MEDS: Benzonatate 100 MG Capsule PO SCH ×2 (01:42→09:45)
[2018-09-24] MEDS: Sodium Chloride 0.65% Nasal Spray 45 ML Bottle EACH NARE SCH ×3 (01:42→09:46)
[2018-09-24] MEDS: MethylPREDNISolone Sod Succinate Inj 40 MG/ML Vial IV.PUSH SCH ×3 (01:42→13:37)
[2018-09-24] MEDS: Budesonide-Formoterol 160/4.5 MCG 6 GM Inhaler INH SCH (04:23)
--- NOTE | 2018-09-24 07:58 | P.PNIM ---
Subjective Interval history: Follow-up for COPD exacerbation, uncontrolled hypertension. The patient reports feeling much better today. States her cough and wheezing has significantly improved. She has been able to ambulate without difficulty. Denies any chest pain. Denies any headache or lightheadedness. She wants to go home. She has a nebulizer machine at home. She requesting refill of DuoNeb solution. Discussed her elevated blood pressure, likely exacerbated by steroids , however increased losartan and recommended to keep a BP log at home and report to PCP. Patient verbalized understanding. She has no other medical complaints at this time. Physical Exam Vital signs: Vital Signs 09/23/18 08:00 09/23/18 08:18 09/23/18 12:02 Temperature 97.8 F 97.9 F Pulse Rate 106 H 90 103 H Respiratory Rate 20 24 20 Blood Pressure 186/88 H 151/79 H Pulse Oximetry 92 L 93 L 09/23/18 12:15 09/23/18 16:30 09/23/18 16:38 Temperature 96.9 F L Pulse Rate 89 100 H 107 H Respiratory Rate 20 20 20 Blood Pressure 146/65 H Pulse Oximetry 93 L 09/23/18 19:37 09/23/18 20:00 09/23/18 20:05 Temperature 97.7 F Pulse Rate 89 105 H 105 H Respiratory Rate 21 16 Blood Pressure 165/97 H Pulse Oximetry 95 92 L 09/23/18 22:47 09/23/18 23:50 09/24/18 01:13 Temperature 98.0 F Pulse Rate 103 H 85 Respiratory Rate 20 18 19 Blood Pressure 168/83 H Pulse Oximetry 93 L 09/24/18 04:05 09/24/18 04:20 09/24/18 07:17 Temperature 98.9 F 98.0 F Pulse Rate 80 103 H 104 H Respiratory Rate 17 20 18 Blood Pressure 165/78 H 172/82 H Pulse Oximetry 93 L 94 L Intake & Output 09/23/18 09/24/18 09/24/18 18:59 06:59 18:59 Intake Total 520 / 520 120 / 120 Balance 520 / 520 120 / 120 Intake: IV 100 / 100 Levaquin 500 mg Premix Inj 500 100 / 100 mg In 100 ml @ 100 mls/hr IV. SIG Q24H [facility] Rx#:[id number] Oral 420 / 420 Oral Supplement 120 / 120 Other: # Voids 2 Date of Last Bowel Movement 09/22/18 # Bowel Movements 0 Narrative: GENERAL: Well-nourished, well-developed pleasant middle-aged AA female patient in NAD. SKIN: Warm and dry. No rash. HEENT: Pupils equal and round. Mucous membranes pink and moist. CARDIOVASCULAR: Regular rate and rhythm. No murmur appreciated. RESPIRATORY: Clear to auscultation. No wheezing today. Breath sounds equal bilaterally. GASTROINTESTINAL: Abdomen soft, non-tender, nondistended. Normoactive bowel sounds x4. MUSCULOSKELETAL: No obvious deformities. Extremities without clubbing, cyanosis , or edema. NEUROLOGICAL: Awake and alert. No obvious cranial nerve deficits. Moving all extremities spontaneously. Normal speech. PSYCHIATRIC: Appropriate mood and affect; insight and judgment normal. Results Labs CBC & Chem 7: 09/22/18 12:11 09/22/18 12:11 Assessment and Plan Plan 63-year-old female with history of COPD, HTN, HLD, diabetes, chronic back pain, presents with worsening shortness of breath Acute COPD exacerbation w/hypoxia, suspected developing community acquired pneumonia: O2 sat as low as 90% -CXR reviewed, shows cardiomegaly with mild congestive failure; minimal consolidative changes retrocardiac region left base -Continue IV steroids with IV Solu-Medrol to 40 mg q6h -Continue duo nebs every 4 hours -Continue patient's Symbicort and Spiriva -Continue antibiotics with IV Levaquin -Continue Mucinex bid and Tessalon Perles tid -O2 as needed to keep O2 sat greater than 90% -Much improved today, stable for discharge Nasal congestion: Suspect secondary to seasonal allergies vs viral illness -Started on Flonase and [place] nasal spray -O2 via simple mask as needed Chest pain: Atypical, likely pleuritic secondary to intractable cough -ACS ruled out with negative serial cardiac enzymes x3 -Given tramadol as needed for pain -Control cough -No further chest pain today Uncontrolled hypertension: With headache. BP up to 186/88 today, likely exacerbated by steroids -Continue patient's amlodipine 10 mg daily, losartan 50 mg daily -Clonidine as needed -Monitor BP, adjust antihypertensives as needed -09/24, BP still persistently elevated, increased patient's losartan to 100 mg daily -Instructed patient to keep a BP log, report to PCP Diabetes mellitus: Chronic -Hold patient's metformin -Monitor Accu-Cheks, cover with SSI Hyperlipidemia: Chronic -Continue patient's home statin DVT prophylaxis: Lovenox Discharge Planning: Discharge patient to home Condition on discharge: Stable Heart healthy/diabetic diet as tolerated [employer] [facility] activity Rx written: Losartan 100 mg daily, prednisone taper, levofloxacin, DuoNeb solution, Ventolin inhaler Follow-up with primary care physician at the [facility] within 1 week Attending Attestation patient was seen and examined today. looks much more comfortable; sob has much improved. wants to go home. BP trend noted. will dc home later today if BP stable. Progress Note: Quality VTE Deep Vein Thrombosis/Pulmonary Embolism Present on Admission: No
[2018-09-24 08:31] VITALS: O2SAT 96
[2018-09-24] MEDS: FLUoxetine 20 MG Capsule PO SCH (09:45)
[2018-09-24] MEDS: Allopurinol 100 MG Tablet PO SCH (09:45)
[2018-09-24] MEDS: Insulin NovoLOG Aspart Correctional Sugar Inj SQ SCH ×2 (09:45→13:36)
[2018-09-24] MEDS: guaiFENesin 600 MG ER Tablet PO SCH (09:45)
[2018-09-24] MEDS: Montelukast 10 MG Tablet PO SCH (09:46)
[2018-09-24] MEDS: Enoxaparin Inj 40 MG/0.4 ML Syringe SQ SCH (09:47)
[2018-09-24] MEDS: amLODIPine 10 MG Tablet PO SCH (09:47)
[2018-09-24 11:56] VITALS: RESP 16; TEMP 97.9
[2018-09-24 12:37] VITALS: BP 138/78; PULSE 98
[2018-09-24] MEDS: Tiotropium Bromide 18 MCG/ACT Inhaler INH SCH (13:36)
== END 2018-09-24 14:54 | disposition home or self-care (01) | DRG 190 ==
LOC: NEPE 11:41 → NEDA 11:41 → NEPGCP 15:54
PROVIDERS: ADMIT Internal Medicine; ATTEND Internal Medicine
CPT/HCPCS: 71010; 71045; 80053; 82550; 82948; 82962; 83520; 83690; 83880; 84484; 85025; 90775; 93005; 94640; 94664; 94665; 96365; 96375; 96376; 99285; G0378; J1650; J1815; J1956; J2920; J2930